=== PATIENT | male | born 1965 | race Caucasian/White ===

== ENCOUNTER 2016-12-06 14:16 | Inpatient (IN) ==
[2016-12-06] MEDS ORDERED: Acetaminophen 325 MG TABLET PO PRN (17:03)
[2016-12-06] MEDS ORDERED: Ondansetron 4 MG/2 ML VIAL IVP PRN (17:03)
[2016-12-06] MEDS ORDERED: Naloxone 0.4 MG/ML INJ IVP PRN (17:03)
[2016-12-06] MEDS: levETIRAcetam 250 MG TABLET PO SCH (17:53)
[2016-12-06] MEDS ORDERED: Ipratropium/Albuterol Neb 3 ML IH SCH (18:00)
--- NOTE | 2016-12-06 18:12 | Internal Med History&Physical ---
Date of Encounter: 12/06/16 Time of Encounter: 17:00 Assessment and Plan (1) Cough with hemoptysis Current visit: Yes Status: Acute 1 patient has been experiencing acute onset of cough/ hemoptysis. He does have a history of stage IV lung cancer. At present time there is no bleeding noted his hemoglobin is 8.6 previous hemoglobin on December 01 was 10. Continue to monitor H&H every 12 hours transfuse as needed [address] scan done at the [facility] which did reveal lymphadenopathy and narrowing of bronchus. Consulted /called pulmonology- bronchoscopy in a.m. patient will be nothing by mouth tonight 3 we will continue with oral steroids (2) Squamous cell carcinoma of lung, stage IV Current visit: Yes Status: Chronic 1 patient has history of squamous cell carcinoma lung. Patient's last chemotherapy treatment was in October We will consult oncology will continue with steroids 2 continue with present pain control-we will consult palliative 3 Zofran as needed for nausea Qualifiers: Laterality: left Qualified Code(s): C34.92 - Malignant neoplasm of unspecified part of left bronchus or lung (3) Seizure disorder Current visit: Yes Status: Acute 1 she has a history of seizures last seizure was proximal one year ago will continue with seizure precautions continue with antieleptics (4) COPD (chronic obstructive pulmonary disease) Current visit: Yes Status: Acute 1 patient has history of COPD is on oxygen at night will continue with oxygen to maintain SPO2 greater than 92% 2 we will continue with bronchodilators 3 patient continues to smoke encouraged patient to stop smoking Qualifiers: COPD type: emphysema Emphysema type: unspecified Qualified Code(s): J43.9 - Emphysema, unspecified (5) Hoarseness or changing voice Current visit: Yes Status: Acute 1 suspect this is related to current cancer. Patient was seen by ENT at the [facility]- do not have the reports from the [facility] will request 2. Place Patient on aspiration precautions (6) Hyponatremia Current visit: Yes Status: Acute 1 sodium presently 129. This is chronic most likely SIADH related to lung CA. No neuro changes at this time we will continue to monitor (7) DVT prophylaxis Current visit: Yes Status: Acute 1 patient is at high risk for DVT due to malignancy. Due to the [facility]optysis [facility] H&P: HPI Chief complaint: hemoptysis-hoarse voice Admitted From: Hospital to Hospital Transfer Plans for Post Hospital Care: Home History of present illness: Mr. Shabazz is a 50 year old male with past medical hx of seizure COPD (oxygen dependent) Lung CA, prostrate CA GERD tobacco abuse. The patient is being seen by oncology for stage IV squamous cell carcinoma of 1 as well as status post palliative radiation treatment and left femur. Last chemotherapy treatment was 11/05/16 he did see 10/02/17 and is anticipating continued treatment of chemotherapy as well as radiation therapy. According to the patient on Saturday he had experienced some midsternal chest pain which was worse with coughing and deep breathing and relieved with rest as well as hoarseness of his throat. He went to the [facility] to be evaluated. While at the [facility] the patient did develop hemoptysis CT of his chest was obtained which did reveal left hilar adenopathy significantly narrowed left main stem bronchus and nearly completely occludes the left upper lobe airway as well as fractures of the left eighth and ninth ribs. The patient states he was seen by ENT at the [facility] and was informed that his vocal cords were "not completely closing" and that is why his voice is hoarse. Because he does follow with oncology at [place] he was transferred to this facility for further workup and evaluation. Upon assessment the patient appears cachectic he speaks in a whisper. He denies any chest pain or shortness of breath at this time his only complaint is left leg pain. The present time there is no hemoptysis or other signs of active bleeding. He is presently hemodynamically stable. I reviewed this case with , who agrees with plan. Past Med Surg Social Fam HX - Past Medical History Medical history: cancer, COPD, migraine, seizures Psychiatric history: no psych history - Past Surgical History Surgical History: herniorrhaphy - Social History Smoking Status: Current every day smoker Smokeless Tobacco Status: No Alcohol use: rarely Drug use: none - Family History Mother Adopted: [place]: Roxie Shabazz Age: 84 Family Member Ethnicity: Non- Living Status: Still Living Hx Family Cardiac Disorders: No Hx Family Respiratory Disorders: Yes Hx Family Cancer: No Hx Family GI Disorders: Yes Hx Family Genitourinary Disorders: Yes Hx Family Endocrine Disorder: Yes Hx Family Musculoskeletal Disorders: Yes Hx Family Neuromuscular Disorders: No Hx Family Neurologic Disorders: No Hx Family HEENT Disorders: No Hx Family Autoimmune Disorders: No Hx Family Reproductive Disorders: No Hx Family Psychosocial Disorders: No Hx Family Medical Disorders: No Internal Medicine - H&P: Meds Albuterol Sulfate [Proair Hfa] 2 puff IH QID PRN 04/03/16 [History] CarBAMazepine [Tegretol] 200 mg PO TID 04/03/16 [History] Diclofenac Sodium [Voltaren] 50 mg PO BID 04/03/16 [History] Ipratropium [Atrovent Inhaler] 2 puff IH QID 04/03/16 [History] LevETIRAcetam [Keppra] 1,000 mg PO Q12H 04/03/16 [History] Methocarbamol [Robaxin-750] 750 mg PO BID 04/03/16 [History] Mometasone Furoate [Asmanex] 1 puff IH BID 04/03/16 [History] Omeprazole [PriLOSEC] 20 mg PO BID 04/03/16 [History] Propranolol [Inderal] 10 mg PO TID 04/03/16 [History] Magic Mouthwash [Magic Mouthwash BLM] 10 ml PO QID PRN #240 ml 05/11/16 [Rx] Ondansetron [Zofran] 4 mg PO Q8HR PRN #90 tablet 05/11/16 [Rx] Prochlorperazine Maleate [Compazine] 10 mg PO Q8HR PRN #90 tablet 05/11/16 [Rx] Guaifenesin [Mucinex] 600 mg PO BID #60 tab.er.12h 08/06/16 [Rx] Acetaminophen [Tylenol] 650 mg PO Q6HR PRN 12/06/16 [History] Acetylcysteine 10% 1 ml IH BID 12/06/16 [History] Chlorhexidine Gluconate [Peridex] 15 ml MM BID 12/06/16 [History] Ipratropium/Albuterol Neb [Duoneb] 3 ml IH Q6HR 12/06/16 [History] Mag Hydrox/Al Hydrox/Simeth [Antacid Suspension] 10 ml PO Q6H PRN 12/06/16 [ History] Magnesium Oxide [Mag-Ox] 400 mg PO BID 12/06/16 [History] Nicotine Patch [Nicoderm] 21 mg TD DAILY 12/06/16 [History] Olodaterol HCl [Striverdi Respimat] 2 puff IH DAILY 12/06/16 [History] Ondansetron [Zofran] 4 mg IVP Q4H PRN 12/06/16 [History] OxyCODONE Immed Rel [Roxicodone 5 MG] 5 mg PO Q4H PRN 12/06/16 [History] PredniSONE 20 mg PO DAILY 12/06/16 [History] Allergies iodine Allergy (Verified 03/22/16 11:57) Rash lamotrigine Allergy (Verified 05/21/16 16:37) Rash Iodinated Contrast Media - Oral and Adverse Reaction (Verified 12/06/16 15:43) See Comments [facility]. All Systems PM: A 10-system review of systems was performed and is negative for pertinent findings except as documented above in the HPI. - Constitutional Constitutional: anorexia, weight loss - EENT Nose, mouth and throat: change in voice, hoarseness - Cardiovascular Cardiovascular ROS IM: chest pain - Respiratory Respiratory: cough, hemoptysis, pain with cough - Gastrointestinal Gastrointestinal: diarrhea, nausea - Neurological Neurological ROS: convulsions Additional comments: Last seizure approximately one year ago - Constitutional Vitals: Temp Pulse Resp BP Pulse Ox 98.5 F 94 16 107/71 97 12/06/16 15:36 12/06/16 15:36 12/06/16 15:36 12/06/16 15:36 12/06/16 15:36 General appearance: Present: cachectic, answers questions appropriately - Head Head exam: Present: atraumatic, normocephalic - Eye Eye exam: Present: PERRL, conjuntiva pink, sclera anicteric Pupils: Present: PERRL - Respiratory Respiratory exam: Present: rhonchi. Absent: accessory muscle use, rales, wheezes - Cardiovascular Cardiovascular exam: Present: RRR, +S1, +S2. Absent: diastolic murmur, gallop, rubs, systolic murmur - GI/Abdominal GI/Abdominal exam: Present: normal bowel sounds, soft, no peritoneal signs. Absent: distended, tenderness - Extremities Exam Extremities exam: Present: warm, radial pulses palpable and symetrical. Absent : calf tenderness, cyanotic, pedal edema - Neurological Exam Neurological exam: Present: CN II-XII intact, oriented X3, no focal deficits. Absent: pronater drift, facial droop, speech deficit - Skin Skin exam: Present: dry, intact Internal Med - H&P Results - Labs Labs: Laboratory results from [facility] December 06 9:00 in the AM CBC WBC 7.8, hemoglobin 8.9, hematocrit 27.5, platelets 605 Chem-7 sodium 126, potassium 4.3, chloride 87, CO2 33, glucose 98, BUN 15, creatinine 0.51 - Diagnostic Studies CT scan - chest Additional comments: CTA per radiology read. No evidence of pulmonary embolism, significant interval enlargement of bulky conglomerate mediastinal and hilar lymphadenopathy. Left hilar means significantly narrows the left mainstem bronchus and completely or nearly completely occludes the left upper lobe airway. Irregular soft tissue masses within the proximal left upper lobe airway could represent retained secretions or potential tumor invasion. Bronchoscopy is recommended for further assessment. Subacute appearing fractures of the lateral left eighth and ninth ribs
[2016-12-06] MEDS: Magnesium Oxide 400 MG TABLET PO SCH (20:42)
[2016-12-06] MEDS: Methocarbamol 750 MG TABLET PO SCH (20:43)
[2016-12-06] MEDS: Chlorhexidine Rinse 15 ML MOUTHWASH MM SCH (20:43)
[2016-12-06] MEDS: carBAMazepine 200 MG TABLET PO SCH (20:43)
[2016-12-06] MEDS: Mag Hydrox/Al Hydrox/Simeth 30 ML UDC PO PRN (20:44)
[2016-12-06] MEDS ORDERED: Ipratropium 1 PUFF INHALER IH SCH (21:00)
[2016-12-06] MEDS: Beclomethasone 80mcg MDI IH SCH (21:07)
[2016-12-06] MEDS: Acetylcysteine 10% 2 ML INHSOL IH SCH (21:08)
[2016-12-06] MEDS: Ipratropium/Albuterol Neb 3 ML IH SCH (21:08)
[2016-12-06 21:14] LABS: Hematocrit 26.5 % (37.5-50.1); Hemoglobin 8.7 g/dL (12.9-16.9)
[2016-12-06] MEDS: Ipratropium 1 PUFF INHALER IH SCH (23:12)
[2016-12-07] MEDS: Ipratropium/Albuterol Neb 3 ML IH SCH ×4 (03:49→22:35)
[2016-12-07] MEDS: Ipratropium 1 PUFF INHALER IH SCH ×4 (03:50→22:36)
[2016-12-07] MEDS: Mag Hydrox/Al Hydrox/Simeth 30 ML UDC PO PRN (04:56)
[2016-12-07] MEDS: levETIRAcetam 250 MG TABLET PO SCH ×2 (04:57→16:33)
[2016-12-07 06:04] LABS: Basophils % 0.5 %; Eosinophils # 0.4 K/mcL (0.0-0.6); Eosinophils % 6.6 %; Hematocrit 26.4 % (37.5-50.1); Hemoglobin 8.4 g/dL (12.9-16.9); Immature Granulocytes % 0.9 % (0-4); Lymphocytes # 1.9 K/mcL (0.6-4.6); Lymphocytes % 29.3 %; Mean Corpuscular HGB Conc 31.8 g/dL (31.6-35.5); Mean Corpuscular Hemoglobin 30.8 pg (28.0-33.3); Mean Corpuscular Volume 96.7 fL (83.0-100.0); Mean Platelet Volume 8.8 fL (9.4-12.4); Monocytes # 1.5 K/mcL (0.0-1.3); Monocytes % 22.3 %; Neutrophils # 2.7 K/mcL (1.6-8.9); Platelet Count 515 K/mcL (140-400); Red Blood Count 2.73 M/mcL (4.19-5.50); Red Cell Distribution Width 15.9 % (11.5-14.5); Segmented Neutrophils % 40.4 %
[2016-12-07 06:21] LABS: BUN/Creatinine Ratio 25 (6-26); Blood Urea Nitrogen 14 mg/dL (8-26); Calcium 10.1 mg/dL (8.6-10.8); Carbon Dioxide 29 mEq/L (19-29); Chloride 88 mEq/L (98-109); Glucose 92 mg/dL (70-99); Osmolality,Calculated 262 (280-300); Potassium 4.7 mEq/L (3.5-4.5); Sodium 126 mEq/L (136-145); eGFR For African Americans > 60 (> 60); eGFR For Non-African Americans > 60 (> 60)
[2016-12-07 06:28] LABS: Platelet Estimate Increased (Normal)
[2016-12-07 06:29] LABS: Anisocytosis 1+ (Not Present)
[2016-12-07] MEDS: Nicotine 21 MG PATCH.TD24 TD SCH (08:01)
[2016-12-07] MEDS: Chlorhexidine Rinse 15 ML MOUTHWASH MM SCH ×2 (08:01→21:08)
[2016-12-07] MEDS: Methocarbamol 750 MG TABLET PO SCH ×2 (08:02→21:08)
[2016-12-07] MEDS: (Olodaterol Hcl [Striverdi Respimat] 2 PUFF) IH SCH (08:02)
[2016-12-07] MEDS: Magnesium Oxide 400 MG TABLET PO SCH ×2 (08:02→21:08)
[2016-12-07] MEDS: predniSONE 20 MG TABLET PO SCH (08:02)
[2016-12-07] MEDS: carBAMazepine 200 MG TABLET PO SCH ×3 (08:02→21:08)
[2016-12-07 09:07] LABS: Hematocrit 27.4 % (37.5-50.1)
[2016-12-07 09:11] LABS: INR 1.3; Prothrombin Time 13.6 Seconds (9.4-12.1)
--- NOTE | 2016-12-07 09:24 | Pulmonology Consult Note ---
Date of Encounter: 12/07/16 Time of Encounter: 09:21 Assessment and Plan (1) Cough with hemoptysis Current Visit: Yes Status: Acute Minor Hemoptysis It is unclear at this time as this represents tumor invasion versus bronchitis versus pneumonia or some combination of the 2 will do a airway examination today prior to that would recommend sending off evaluation for coagulopathy as a see this as not been done as of yet platelet count is normal and is not any sort of blood thinners at this time. Suspect patient may need palliative interventional procedure such as stenting based upon airway examination will be able to have a better idea of anatomical considerations for this. Further recommendations such as antimicrobials etc. based upon formal imaging review and cultures obtained Cont to keep patient NPO and and quantitate at bedside amount of hemoptysis. if greater dinh 250cc at one time or 500cc in 12 hours recommend transfer to ICU for further monitoring. Ideally would need at least 1 18guage AC IV. Trend H/H daily (currrently stable) cough suppresants such as codeine and tessalon can be helpful in a small group of patients. A bronchoscopy is recommended. The procedure , risks, benefits, complications, and expected outcomes have been reviewed. Benefits of diagnosis, as well as risks to include bleeding, infection, pneumothorax which may require surgical intervention, and in a small population. The patient is aware that sometimes test is nondiagnostic. Discussed with patient and agrees to proceed. (2) COPD (chronic obstructive pulmonary disease) Current Visit: Yes Status: Acute Minor wheezing on examination today mostly in the right lower lobe would be helpful to get a chest x-ray is basic evaluation at this time agree with continued enteral steroids and bronchodilators at present would not, in an antimicrobials at this time as more information is needed and I do not see any urgent need to start antimicrobials Qualifiers: COPD type: emphysema Emphysema type: unspecified Qualified Code(s): J43.9 - Emphysema, unspecified (3) DVT prophylaxis Current Visit: Yes Status: Acute recommend mechanical DVT prophylaxis with active bleeding (4) Squamous cell carcinoma of lung, stage IV Current Visit: Yes Status: Chronic Qualifiers: Laterality: left Qualified Code(s): C34.92 - Malignant neoplasm of unspecified part of left bronchus or lung History of Present Illness Consult date: 12/07/16 Requesting physician: Allan Key Reason for consult: abnormal CXR/CT Chief complaint: Coughing up blood History of present illness: This is a 50-year-old woman with a history of metastatic non-small cell lung cancer being followed here in the cancer center has undergone chemotherapy with [place]-based therapy along with XRT for metastatic left bone lesion. Last chemotherapy was approximately 1 month ago. [facility] he was having shortness of breath and difficulty breathing was treated for COPD exacerbation and possible pneumonia records are not present for me to review and patient is an entirely sure the exact therapy. He received there when developed hemoptysis per report and speak with the patient a few days ago CTA was performed at that time which was remarkable for left mainstem narrowing from what was scattered from the history of present illness although I do not have the formal report in front of me in the disc has not been obtained as of yet. Speaking with the patient he has been coughing up small teaspoons of dark blood for the last few days intermittent has had some intermittent chest pain as well mostly located in the right upper portion of his thorax. Denies any fevers or chills has had cough but apically productive longtime smoking history started smoking approximately age 19 at least a pack a day until when [facility]. Diagnosed with COPD and is on maintenance inhalers looking at his medication list right now appears disease also receiving steroids for possible COPD exacerbation currently he is in no acute distress and is complaining of hunger. 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 subsequently went on a work in a [employer] HX - Past Medical History Medical history: cancer, COPD, migraine, seizures Psychiatric history: no psych history - Past Surgical History Surgical History: herniorrhaphy - Social History Smoking Status: Current every day smoker Smokeless Tobacco Status: No Alcohol use: rarely Drug use: none - Family History Mother Adopted: [place]: Roxie Shabazz Age: 84 Family Member Ethnicity: Non- Living Status: Still Living Hx Family Cardiac Disorders: No Hx Family Respiratory Disorders: Yes Hx Family Cancer: No Hx Family GI Disorders: Yes Hx Family Genitourinary Disorders: Yes Hx Family Endocrine Disorder: Yes Hx Family Musculoskeletal Disorders: Yes Hx Family Neuromuscular Disorders: No Hx Family Neurologic Disorders: No Hx Family HEENT Disorders: No Hx Family Autoimmune Disorders: No Hx Family Reproductive Disorders: No Hx Family Psychosocial Disorders: No Hx Family Medical Disorders: No Medications and Allergies Albuterol Sulfate [Proair Hfa] 2 puff IH QID PRN 04/03/16 [History] CarBAMazepine [Tegretol] 200 mg PO TID 04/03/16 [History] Diclofenac Sodium [Voltaren] 50 mg PO BID 04/03/16 [History] Ipratropium [Atrovent Inhaler] 2 puff IH QID 04/03/16 [History] LevETIRAcetam [Keppra] 1,000 mg PO Q12H 04/03/16 [History] Methocarbamol [Robaxin-750] 750 mg PO BID 04/03/16 [History] Mometasone Furoate [Asmanex] 1 puff IH BID 04/03/16 [History] Omeprazole [PriLOSEC] 20 mg PO BID 04/03/16 [History] Propranolol [Inderal] 10 mg PO TID 04/03/16 [History] Magic Mouthwash [Magic Mouthwash BLM] 10 ml PO QID PRN #240 ml 05/11/16 [Rx] Ondansetron [Zofran] 4 mg PO Q8HR PRN #90 tablet 05/11/16 [Rx] Prochlorperazine Maleate [Compazine] 10 mg PO Q8HR PRN #90 tablet 05/11/16 [Rx] Guaifenesin [Mucinex] 600 mg PO BID #60 tab.er.12h 08/06/16 [Rx] Acetaminophen [Tylenol] 650 mg PO Q6HR PRN 12/06/16 [History] Acetylcysteine 10% 1 ml IH BID 12/06/16 [History] Chlorhexidine Gluconate [Peridex] 15 ml MM BID 12/06/16 [History] Ipratropium/Albuterol Neb [Duoneb] 3 ml IH Q6HR 12/06/16 [History] Mag Hydrox/Al Hydrox/Simeth [Antacid Suspension] 10 ml PO Q6H PRN 12/06/16 [ History] Magnesium Oxide [Mag-Ox] 400 mg PO BID 12/06/16 [History] Nicotine Patch [Nicoderm] 21 mg TD DAILY 12/06/16 [History] Olodaterol HCl [Striverdi Respimat] 2 puff IH DAILY 12/06/16 [History] Ondansetron [Zofran] 4 mg IVP Q4H PRN 12/06/16 [History] OxyCODONE Immed Rel [Roxicodone 5 MG] 5 mg PO Q4H PRN 12/06/16 [History] PredniSONE 20 mg PO DAILY 12/06/16 [History] Allergies iodine Allergy (Verified 03/22/16 11:57) Rash lamotrigine Allergy (Verified 05/21/16 16:37) Rash Iodinated Contrast Media - Oral and Adverse Reaction (Verified 12/06/16 15:43) See Comments [facility] list. All Systems: A 10-system review of systems was performed and is negative for pertinent findings except as documented above in the HPI. Physical Examination Vital Signs: Vital Signs, Last 4 Hours Temp Pulse Resp BP Pulse Ox 12/07/16 06:44 98.2 F 106 16 118/70 97 12/07/16 05:29 98.5 F 101 16 112/69 97 General appearance: no acute distress, other (emaciated and cachexic ) Eyes: nonicteric ENT: oropharynx moist Neck: supple Auscultation: right: wheezes (RLL ), bilateral: diminished breath sounds ( throughout ), rhonchi (scatered ) Cardiovascular: regular rate and rhythm Gastrointestinal: normoactive bowel sounds Integumentary: normal Extremities: no cyanosis Musculoskeletal: no deformities normal mental status, non-focal exam mood appropriate Results - Laboratory Findings CBC and BMP: 12/07/16 08:59 12/07/16 05:27 PT/INR, D-dimer PT 13.6 Seconds (9.4-12.1) H 12/07/16 08:59 Abnormal lab findings: Abnormal lab results RBC 2.73 M/mcL (4.19-5.50) L 12/07/16 05:27 Hgb 9.0 g/dL (12.9-16.9) L 12/07/16 08:59 Hct 27.4 % (37.5-50.1) L 12/07/16 08:59 RDW 15.9 % (11.5-14.5) H 12/07/16 05:27 Plt Count 515 K/mcL (140-400) H 12/07/16 05:27 MPV 8.8 fL (9.4-12.4) L 12/07/16 05:27 Monocytes # 1.5 K/mcL (0.0-1.3) H 12/07/16 05:27 Platelet Estimate Increased (Normal) H 12/07/16 05:27 Anisocytosis 1+ (Not Present) A 12/07/16 05:27 PT 13.6 Seconds (9.4-12.1) H 12/07/16 08:59 Sodium 126 mEq/L (136-145) L 12/07/16 05:27 Potassium 4.7 mEq/L (3.5-4.5) H 12/07/16 05:27 Chloride 88 mEq/L (98-109) L 12/07/16 05:27 Creatinine 0.57 mg/dL (0.72-1.25) L 12/07/16 05:27 POC Glucose 117 (58-89) H 12/06/16 23:29 Calculated Osmolality 262 (280-300) L 12/07/16 05:27 - Clinical Findings Intake & Output: Intake & Output 12/06/16 12/07/16 12/07/16 23:59 07:59 15:59 Intake Total 0 / 0 Output Total 0 / 0 Balance 0 / 0 Consult Discharge Plan - Plan [facility]errals: [facility]Primary Care Provider[facility] -
--- NOTE | 2016-12-07 10:05 | Oncology Inp Consult Note ---
Date of Encounter: 12/07/16 Time of Encounter: 09:00 Assessment and Plan (1) Squamous cell carcinoma of lung, stage IV Status: Chronic Assessment and plan: 50 yo male with metastatic squamous cell carcinoma, abdominal adenopathy and left femur uptake consistent with metastatic disease, stage IV. s/p RT palliative left femur treatments completed 06/12. s/p chemo carbo/abraxane-last dose 11/13 Hospitalized with hemoptysis--mucosu with dark blood-awaiting bronchoscopy procedure today. Pulm input and consultation appreciated. Discussed imaging (from [facility]) with radiation--possible palliative RT to paratracheal mediastial adenopathy after bronch evaluation and findings today. Monitor Hgb/Hct transfuse as needed Nivolumab q 2wkly to be planned SOB/COPD likely COPD, anemia. SOB Stable Pain in the left leg. Has oxycodone--prn> Add zometa/denosumab. Ortho evaluate for any procedure to stabilize. He is s/p RT left femur Will obtain recent imaging from [facility] as scheduled Qualifiers: Laterality: left Qualified Code(s): C34.92 - Malignant neoplasm of unspecified part of left bronchus or lung - Data of Consult Requesting Physician: Julian Campos MD Primary Care Provider: [facility] - Consult Narrative Reason for consult: lung cancer History of present illness: Stage IV squamous cell ca lung, s/p palliative RT left femur 06/12. on carbo/ taxol since 06/25/16, carbo/abraxane from [facility], last Rx 11/05/16 HPI 50-year-old with squamous cell carcinoma of the lung, medical history significant for chronic tobacco abuse, COPD, history of cancer prostate, history of seizures last episode 6 months ago, history of migraine headaches with symptoms of COPD and pneumonia, who underwent further workup for lung nodules and lymphadenopathy with PET imaging as well as a bronchoscopy biopsy. Bronchoscopy findings showed narrowing in the left upper and lower Left main bronchus. Biopsy of the anterior carinal lymph node and subcarinal lymph node were positive for malignant cells consistent with squamous cell carcinoma. Right upper, lobe left upper lobe bronchoalveolar lavage consistent with squamous cell carcinoma. Right hilum atypical cells suggestive of squamous cell carcinoma as well. P63, CK 5 and 6 were positive. PET showed Metabolically active left hilar mass 23.4 increased FDG activity with SUV max of 23.6 and the subcarinal lymph node uptake in several mediastinal lymph nodes with SUV max of 18 axillary adenopathy without SUV uptake. airspace opacity in the left upper lobe secondary to partial obstruction. Focal intense metabolic activity in the proximal left femur concerning for metastatic disease, metabolically active soft tissue nodule in the anterior right lower quadrant concerning for metastatic disease. Seizure hx last one 6mo ago prior to initial visit Hx prostate ca s/p brachytherapy in 2011 at [place] by Dr Gonzales Left hip discomfort s/p RT 06/12 left femur Started Carbotaxol, 06/12. Developed reaction to taxol with C2--with SOB, dizziness. BP 155/60, CT 105-112, Pulse ox on oxygen was 98%--07/13, strated C3 with abraxane instead of taxol 08/06/16 (carbo given with wk2 abraxane due to cycling) Imaging after [facility] showed mixed response with YARIEL nodule decreasing and slight increase in paratracheal node. He is on carbo/abraxane [facility] Anemia Hgb dropped 7.5--08/20/16. Rx held that day CXR--08/25/16--no ac abnormalities. Hyperinflation. No COPD s/p PRBC for anemia-cytopenia from Rx CT CAP--increase mediastianl adenopathy, paratracheal adenopathy ROS: 12/03/2016 Patient was seen last visit a week [facility] due to weakness and difficulty swallowing, poor intake. Had a cough, with daily headaches. Hoarseness/lost voice since Saturday. He has appt with ENT to follow up with this. Patient was transferred on 12/06 2016 with coughing episodes and hemoptysis for further Rx. Past Med Surg Social Fam HX - Past Medical History Medical history: cancer, COPD, migraine, seizures Psychiatric history: no psych history - Past Surgical History Surgical History: herniorrhaphy - Social History Smoking Status: Current every day smoker Smokeless Tobacco Status: No Alcohol use: rarely Drug use: none - Family History Mother Adopted: [place]: Roxie Shabazz Age: 84 Family Member Ethnicity: Non- Living Status: Still Living Hx Family Cardiac Disorders: No Hx Family Respiratory Disorders: Yes Hx Family Cancer: No Hx Family GI Disorders: Yes Hx Family Genitourinary Disorders: Yes Hx Family Endocrine Disorder: Yes Hx Family Musculoskeletal Disorders: Yes Hx Family Neuromuscular Disorders: No Hx Family Neurologic Disorders: No Hx Family HEENT Disorders: No Hx Family Autoimmune Disorders: No Hx Family Reproductive Disorders: No Hx Family Psychosocial Disorders: No Hx Family Medical Disorders: No Medications and Allergies Albuterol Sulfate [Proair Hfa] 2 puff IH QID PRN 04/03/16 [History] CarBAMazepine [Tegretol] 200 mg PO TID 04/03/16 [History] Diclofenac Sodium [Voltaren] 50 mg PO BID 04/03/16 [History] Ipratropium [Atrovent Inhaler] 2 puff IH QID 04/03/16 [History] LevETIRAcetam [Keppra] 1,000 mg PO Q12H 04/03/16 [History] Methocarbamol [Robaxin-750] 750 mg PO BID 04/03/16 [History] Mometasone Furoate [Asmanex] 1 puff IH BID 04/03/16 [History] Omeprazole [PriLOSEC] 20 mg PO BID 04/03/16 [History] Propranolol [Inderal] 10 mg PO TID 04/03/16 [History] Magic Mouthwash [Magic Mouthwash BLM] 10 ml PO QID PRN #240 ml 05/11/16 [Rx] Ondansetron [Zofran] 4 mg PO Q8HR PRN #90 tablet 05/11/16 [Rx] Prochlorperazine Maleate [Compazine] 10 mg PO Q8HR PRN #90 tablet 05/11/16 [Rx] Guaifenesin [Mucinex] 600 mg PO BID #60 tab.er.12h 08/06/16 [Rx] Acetaminophen [Tylenol] 650 mg PO Q6HR PRN 12/06/16 [History] Acetylcysteine 10% 1 ml IH BID 12/06/16 [History] Chlorhexidine Gluconate [Peridex] 15 ml MM BID 12/06/16 [History] Ipratropium/Albuterol Neb [Duoneb] 3 ml IH Q6HR 12/06/16 [History] Mag Hydrox/Al Hydrox/Simeth [Antacid Suspension] 10 ml PO Q6H PRN 12/06/16 [ History] Magnesium Oxide [Mag-Ox] 400 mg PO BID 12/06/16 [History] Nicotine Patch [Nicoderm] 21 mg TD DAILY 12/06/16 [History] Olodaterol HCl [Striverdi Respimat] 2 puff IH DAILY 12/06/16 [History] Ondansetron [Zofran] 4 mg IVP Q4H PRN 12/06/16 [History] OxyCODONE Immed Rel [Roxicodone 5 MG] 5 mg PO Q4H PRN 12/06/16 [History] PredniSONE 20 mg PO DAILY 12/06/16 [History] Allergies iodine Allergy (Verified 03/22/16 11:57) Rash lamotrigine Allergy (Verified 05/21/16 16:37) Rash Iodinated Contrast Media - Oral and Adverse Reaction (Verified 12/06/16 15:43) See Comments Per [facility] list. Review of systems: as in HPI Oncology - Exam - Constitutional Vitals: Temp Pulse Resp BP Pulse Ox 98.2 F 106 16 118/70 97 12/07/16 06:44 12/07/16 06:44 12/07/16 06:44 12/07/16 06:44 12/07/16 06:44 Exam: thin not in distress, on oxygen - Head Head exam: Present: atraumatic, normal inspection - Eye Eye exam: Present: sclera anicteric - ENT ENT exam: Present: mucous membranes moist - Neck Neck exam: Present: full ROM, normal inspection - Respiratory Respiratory exam: Present: CTAB, wheezes - Cardiovascular Cardiovascular exam: Present: +S1, +S2 - GI/Abdominal GI/Abdominal exam: Present: normal bowel sounds, soft - Extremities Exam Additional comments: no pedal edema - Neurological Exam Neurological exam: Present: alert, oriented X3 Oncology - Results - Labs Labs: Short CBC 12/06/16 12/07/16 12/07/16 Range/Units 21:07 05:27 08:59 WBC 6.6 (4.3-11.1) K/mcL Hgb 8.7 L 8.4 L 9.0 L (12.9-16.9) g/dL Hct 26.5 L 26.4 L 27.4 L (37.5-50.1) % Plt Count 515 H (140-400) K/mcL Neutrophils # 2.7 (1.6-8.9) K/mcL BMP 12/07/16 05:27 Sodium 126 L Potassium 4.7 H Chloride 88 L Carbon Dioxide 29 BUN 14 Creatinine 0.57 L Glucose 92 Calcium 10.1 Consult Discharge Plan - Plan [facility]errals: [facility] [Primary Care Provider] -
[2016-12-07] MEDS: Acetylcysteine 10% 2 ML INHSOL IH SCH ×2 (10:24→22:35)
[2016-12-07] MEDS: Beclomethasone 80mcg MDI IH SCH ×2 (10:24→22:35)
[2016-12-07] MEDS ORDERED: Lidocaine Viscous Oral Soln 15 ML SOLUTION ONE (10:40)
[2016-12-07] MEDS ORDERED: *HR* FentaNYL (PF) 100 MCG/2 ML VIAL IVP ONE (11:03)
--- NOTE | 2016-12-07 11:03 | Palliative - Consult Note ---
Date of Encounter: 12/07/16 Time of Encounter: 10:50 - Assessment and Plan (1) Nausea Current Visit: Yes Status: Acute Assessment and plan: Continue Ondansetron PRN and monitor (2) Cancer associated pain Current Visit: Yes Status: Acute Assessment and plan: Continue Oxycodone 5mg PRN - has not utilized since admission. Patients states only has to use this occasionally at home. Continue and monitor (3) Counseling regarding advanced care planning and goals of care Current Visit: Yes Status: Acute Assessment and plan: Patient states leaving for bronchoscopy soon. Initiated advanced care planning discussion - States he has completed his advanced directives through the [facility] and signed release for me to obtain that information. Asked me to review this document. Patient was very quiet and withdrawn throughout conversation, stated he was tired and just desired to rest. DId not want to discuss code status at this time. Release faxed to [facility] and awaiting advanced directives to review. He lives alone, but brother lives in [place] and assists him with appts, meals , and transportation. MotherRoxie resides in [place], and is able to assist if his brother is not available. On marie team at [facility]. He ambulates with cane and has Oxygen at home if needed. States they were in process of setting up home care. He is anxiously awaiting bronch and desires to see results prior to further conversation. Will continue compassionate conversations while he is here in hospital. (4) COPD (chronic obstructive pulmonary disease) Current Visit: Yes Status: Acute Qualifiers: COPD type: emphysema Emphysema type: unspecified Qualified Code(s): J43.9 - Emphysema, unspecified (5) Cough with hemoptysis Current Visit: Yes Status: Acute (6) Squamous cell carcinoma of lung, stage IV Current Visit: Yes Status: Chronic Qualifiers: Laterality: left Qualified Code(s): C34.92 - Malignant neoplasm of unspecified part of left bronchus or lung Palliative-CN HPI - Data of Consult Consult date: 12/07/16 Requesting Physician: Julian Campos MD Primary Care Provider: [facility]CP [facility] - Consult Narrative History of present illness: Mr. Shabazz is a 50 year old male with a history of prostate cancer as well as metastatic squamous cell lung cancer as is cared for by marie team at the [facility], along with the [facility]. He was admitted with acute onset of hemoptysis. He currently resides alone with brother assisting. He currently is resting quietly. Speaks in a whisper. has ENT consult soon to evaluate this. States he is having no pain and only occasionally requires his Oxycodone at home. was struggling with nausea a few days ago, but currently improved. Denies any shortness of breath, does not have oxygen on presently.. Previously has history of COPD, and recently still smoking. Flat affect and not engaging in much conversation during my visit. States he is having bronch today at 100. CC: Julian Campos MD Past Med Surg Social Fam HX - Past Medical History Medical history: cancer, COPD, migraine, seizures Psychiatric history: no psych history - Past Surgical History Surgical History: herniorrhaphy - Social History Smoking Status: Current every day smoker Smokeless Tobacco Status: No Alcohol use: rarely Drug use: none - Family History Mother Adopted: [place]: Roxie Shabazz Age: 84 Family Member Ethnicity: Non- Living Status: Still Living Hx Family Cardiac Disorders: No Hx Family Respiratory Disorders: Yes Hx Family Cancer: No Hx Family GI Disorders: Yes Hx Family Genitourinary Disorders: Yes Hx Family Endocrine Disorder: Yes Hx Family Musculoskeletal Disorders: Yes Hx Family Neuromuscular Disorders: No Hx Family Neurologic Disorders: No Hx Family HEENT Disorders: No Hx Family Autoimmune Disorders: No Hx Family Reproductive Disorders: No Hx Family Psychosocial Disorders: No Hx Family Medical Disorders: No Medications and Allergies Albuterol Sulfate [Proair Hfa] 2 puff IH QID PRN 04/03/16 [History] CarBAMazepine [Tegretol] 200 mg PO TID 04/03/16 [History] Diclofenac Sodium [Voltaren] 50 mg PO BID 04/03/16 [History] Ipratropium [Atrovent Inhaler] 2 puff IH QID 04/03/16 [History] LevETIRAcetam [Keppra] 1,000 mg PO Q12H 04/03/16 [History] Methocarbamol [Robaxin-750] 750 mg PO BID 04/03/16 [History] Mometasone Furoate [Asmanex] 1 puff IH BID 04/03/16 [History] Omeprazole [PriLOSEC] 20 mg PO BID 04/03/16 [History] Propranolol [Inderal] 10 mg PO TID 04/03/16 [History] Magic Mouthwash [Magic Mouthwash BLM] 10 ml PO QID PRN #240 ml 05/11/16 [Rx] Ondansetron [Zofran] 4 mg PO Q8HR PRN #90 tablet 05/11/16 [Rx] Prochlorperazine Maleate [Compazine] 10 mg PO Q8HR PRN #90 tablet 05/11/16 [Rx] Guaifenesin [Mucinex] 600 mg PO BID #60 tab.er.12h 08/06/16 [Rx] Acetaminophen [Tylenol] 650 mg PO Q6HR PRN 12/06/16 [History] Acetylcysteine 10% 1 ml IH BID 12/06/16 [History] Chlorhexidine Gluconate [Peridex] 15 ml MM BID 12/06/16 [History] Ipratropium/Albuterol Neb [Duoneb] 3 ml IH Q6HR 12/06/16 [History] Mag Hydrox/Al Hydrox/Simeth [Antacid Suspension] 10 ml PO Q6H PRN 12/06/16 [ History] Magnesium Oxide [Mag-Ox] 400 mg PO BID 12/06/16 [History] Nicotine Patch [Nicoderm] 21 mg TD DAILY 12/06/16 [History] Olodaterol HCl [Striverdi Respimat] 2 puff IH DAILY 12/06/16 [History] Ondansetron [Zofran] 4 mg IVP Q4H PRN 12/06/16 [History] OxyCODONE Immed Rel [Roxicodone 5 MG] 5 mg PO Q4H PRN 12/06/16 [History] PredniSONE 20 mg PO DAILY 12/06/16 [History] Allergies iodine Allergy (Verified 03/22/16 11:57) Rash lamotrigine Allergy (Verified 05/21/16 16:37) Rash Iodinated Contrast Media - Oral and Adverse Reaction (Verified 12/06/16 15:43) See Comments Per [facility] list. All systems: reviewed and no additional remarkable complaints except as stated ( hemoptysis, weakness, occasional nausea, shortness of breath on exertion) Palliative Care-Exam - Constitutional Vitals: Temp Pulse Resp BP Pulse Ox 98.2 F 106 16 118/70 97 12/07/16 06:44 12/07/16 06:44 12/07/16 06:44 12/07/16 06:44 12/07/16 08:00 General appearance: Present: no acute distress - Head Head Exam: Present: normal inspection, normocephalic - Respiratory Respiratory exam: Present: decreased breath sounds - Expanded Respiratory Exam Location: decreased breath sounds: Right, Lower - Cardiovascular Cardiovascular exam: Present: +S1, +S2 - GI/Abdominal Exam GI/Abdominal exam: Present: normal bowel sounds, soft - Neurological Exam Neurological exam: Present: alert, oriented X3, strengths equal and symetr throughout - Psychiatric Psychiatric exam: Present: flat affect - Skin Skin exam: Present: dry, pallor, warm Internal Medicine - CN: Reslt - Labs CBC & Chem 7: 12/07/16 08:59 12/07/16 05:27 Labs: Short CBC 12/06/16 12/07/16 12/07/16 Range/Units 21:07 05:27 08:59 WBC 6.6 (4.3-11.1) K/mcL Hgb 8.7 L 8.4 L 9.0 L (12.9-16.9) g/dL Hct 26.5 L 26.4 L 27.4 L (37.5-50.1) % Plt Count 515 H (140-400) K/mcL Neutrophils # 2.7 (1.6-8.9) K/mcL BMP 12/07/16 05:27 Sodium 126 L Potassium 4.7 H Chloride 88 L Carbon Dioxide 29 BUN 14 Creatinine 0.57 L Glucose 92 Calcium 10.1 - ABG Interpretation ABG results: PT/INR, D-dimer PT 13.6 Seconds (9.4-12.1) H 12/07/16 08:59 Consult Discharge Plan - Plan [facility]errals: [facility] [Primary Care Provider] - 12/20/16 12:30 pm Palliative Quality Palliative Quality: Screen for Code Status: Yes, Screen for Goals of Care: Yes, Screen for Pain: Yes, If Pain Regimen Started, Initiate Bowel Regimen: NA, Screen for Nausea/Vomitting: Yes Code Status: 12/06/16 17:03 Resuscitation Status: Active [RES] Routine Comment: Resuscitation Status: Full Code
[2016-12-07] MEDS ORDERED: *HR* Midazolam HCl 5 MG/5 ML VIAL IVP ONE (11:04)
--- NOTE | 2016-12-07 11:11 | Internal Med Progress Note ---
<Hernandez Gomez - Last Filed: 12/07/16 11:48> Date of Encounter: 12/07/16 Time of Encounter: 11:07 - Assessment and plan (1) Hemoptysis Current Visit: Yes Status: Acute Assessment and plan: likely from lung cancer. Hg stable Pulmonology consulted with bronchoscopy planned for today. follow H/H. (2) Non-small cell lung cancer Current Visit: Yes Status: Acute Assessment and plan: Stage 4 NSC lung cancer. has recieved RT to left femur and chemotherapy with last dose on 11/13/16 Case discussed with oncology. will need to continue to follow up as an outpatient. Qualifiers: Qualified Code(s): C34.90 - Malignant neoplasm of unspecified part of unspecified bronchus or lung (3) Anemia Current Visit: Yes Status: Acute Assessment and plan: likely from a combination of cancer, hemoptysis, malnutrition, and chemotherapy. currently stable. trend H/H as he has hemoptysis. Qualifiers: Qualified Code(s): D64.9 - Anemia, unspecified (4) Hyponatremia Current Visit: Yes Status: Acute Assessment and plan: acute on chronic medications reviewed. antiepileptics may be contributing. He is asymptomatic. He is malnourished. Likely secondary to poor diet and volume depletion. Will order lab studies. My impression is that this is more of a volume depletion and poor nutrition picture. I will start him on some IV fluids and trend BMP. (5) COPD (chronic obstructive pulmonary disease) Current Visit: Yes Status: Acute Assessment and plan: currently stable. On room air. continue Qvar and PRN duonebs. advise smoking cessation Qualifiers: Qualified Code(s): J44.9 - Chronic obstructive pulmonary disease, unspecified (6) Tobacco abuse Current Visit: Yes Status: Acute Assessment and plan: advise cessation nicotine patch offered. (7) Malnutrition Current Visit: Yes Status: Acute Assessment and plan: nutrition consulted nithya benz. (8) Patient underweight Current Visit: Yes Status: Acute Assessment and plan: as stated above (9) DVT prophylaxis Current Visit: Yes Status: Acute Assessment and plan: EPCDS - Subjective Interval history: Mr. Shabazz is a 50 y.o. male with stage IV non small cell carcinoma of the lung with known metastsis to the left fmur. He has undergone palliative RT of the left Femur. He has also undergone chemotherapy with Carbo/abraxane. Last dose was 11/13/16. He is admitted for hemoptysis. Pulmonology has been consulted and he is scheduled for a bronchoscopy later today. Today Mr. Shabazz states that he continues to cough up bright bleed blood. He has a container at bedside that has approximately 20 cc's of blood in it. He state that this is all he has coughed up since admission. He denies any increased dypnea, wheeze, or fever. He denies any pain or discomfort at this time. He has no further complaints or concerns at this time. - Constitutional Vitals: Temp Pulse Resp BP Pulse Ox 98.2 F 106 16 118/70 100 12/07/16 06:44 12/07/16 06:44 12/07/16 10:24 12/07/16 06:44 12/07/16 10:24 General appearance: Present: cachectic, A&O X 3, pleasant, no acute distress, answers questions appropriately Exam: cachetic - Head Head exam: Present: atraumatic, normal inspection, normocephalic - Eye Eye exam: Present: PERRL, conjuntiva pink, sclera anicteric Pupils: Present: PERRL - ENT ENT exam: Present: mucous membranes moist Additional comments: no cervicel LAD - Neck Neck exam general surgery: Present: normal inspection, supple, trachea midline. Absent: lymphadenopathy - Respiratory Respiratory exam: Present: CTAB, wheezes. Absent: accessory muscle use, rales, rhonchi - Cardiovascular Cardiovascular exam: Present: RRR, +S1, +S2. Absent: diastolic murmur, gallop, rubs, systolic murmur - GI/Abdominal GI/Abdominal exam: Present: normal bowel sounds, soft, no peritoneal signs. Absent: distended, tenderness - Extremities Exam Extremities exam: Present: warm, radial pulses palpable and symetrical. Absent : calf tenderness, cyanotic, pedal edema - Skin Skin exam: Present: dry, intact Internal Medicine: Result - Labs CBC & Chem 7: 12/07/16 08:59 12/07/16 05:27 Labs: Short CBC 12/06/16 12/07/16 12/07/16 Range/Units 21:07 05:27 08:59 WBC 6.6 (4.3-11.1) K/mcL Hgb 8.7 L 8.4 L 9.0 L (12.9-16.9) g/dL Hct 26.5 L 26.4 L 27.4 L (37.5-50.1) % Plt Count 515 H (140-400) K/mcL Neutrophils # 2.7 (1.6-8.9) K/mcL BMP 12/07/16 05:27 Sodium 126 L Potassium 4.7 H Chloride 88 L Carbon Dioxide 29 BUN 14 Creatinine 0.57 L Glucose 92 Calcium 10.1 - ABG Interpretation ABG results: PT/INR, D-dimer PT 13.6 Seconds (9.4-12.1) H 12/07/16 08:59 Consult Discharge Plan - Plan [facility]errals: [facility] [Primary Care Provider] - 12/20/16 12:30 pm <Julian Campos P - Last Filed: 12/07/16 15:47> - Constitutional Vitals: Temp Pulse Resp BP Pulse Ox 98.2 F 94 14 105/73 100 12/07/16 06:44 12/07/16 12:00 12/07/16 12:00 12/07/16 12:00 12/07/16 10:24 Internal Medicine: Result - Labs CBC & Chem 7: 12/07/16 08:59 12/07/16 05:27 Labs: Short CBC 12/06/16 12/07/16 12/07/16 Range/Units 21:07 05:27 08:59 WBC 6.6 (4.3-11.1) K/mcL Hgb 8.7 L 8.4 L 9.0 L (12.9-16.9) g/dL Hct 26.5 L 26.4 L 27.4 L (37.5-50.1) % Plt Count 515 H (140-400) K/mcL Neutrophils # 2.7 (1.6-8.9) K/mcL BMP 12/07/16 05:27 Sodium 126 L Potassium 4.7 H Chloride 88 L Carbon Dioxide 29 BUN 14 Creatinine 0.57 L Glucose 92 Calcium 10.1 - ABG Interpretation ABG results: PT/INR, D-dimer PT 13.6 Seconds (9.4-12.1) H 12/07/16 08:59 - Attending Attestation I examined this patient and my medical decision-making was reviewed with the ATTENDANT SALES/PA/Advanced Practice Nurse/Resident Physician. I agree with the documented findings, disposition and treatment plan as described except to the extent set forth below. if patient clinically worsened then transfer to [facility] overnight as per pulmonology
[2016-12-07] MEDS ORDERED: *HR* EPINEPHrine 1 MG/10 ML SYRINGE INTRATRACH PRN (11:56)
--- NOTE | 2016-12-07 12:43 | Pre-Sedation Evaluation ---
Pre-sedation evaluation - Pre-sedation checklist Date of procedure: 12/07/16 Procedure: bronchoscopy Recent Vitals: Last Vital Signs Temp 98.2 F 12/07/16 06:44 Pulse 94 12/07/16 12:00 Resp 14 12/07/16 12:00 BP 105/73 12/07/16 12:00 Pulse Ox 100 12/07/16 10:24 H&P (including ROS) documented in medical record: Yes Previous reaction to sedatives/anesthetics: No Dietary Status: NPO after Midnight Airway Assessment: Patient can open mouth completely, TMJ function normal Dentition: poor dentition Possible difficult airway: No ASA Classification *see protocol: CLASS III-Severe systemic disease Plan of Care: Pt appropriate candidate for procedure/moderate/conscious sedation , Risks/benefits of procedure/sedation discussed w/ patient/family
[2016-12-07 13:50] LABS: Thyroid Stimulating Hormone 0.947 mcIU/mL (0.350-4.840)
[2016-12-07 16:22] LABS: Hematocrit 26.4 % (37.5-50.1); Hemoglobin 8.8 g/dL (12.9-16.9)
[2016-12-07] MEDS: 0.9 % Sodium Chloride 1,000 ML IVC SCH (19:46)
[2016-12-07 21:00] LABS: Hemoglobin 8.3 g/dL (12.9-16.9)
[2016-12-08] MEDS: Ipratropium/Albuterol Neb 3 ML IH SCH ×4 (04:26→20:37)
[2016-12-08] MEDS: Ipratropium 1 PUFF INHALER IH SCH ×4 (04:29→20:47)
[2016-12-08] MEDS: levETIRAcetam 250 MG TABLET PO SCH ×2 (06:03→17:16)
--- NOTE | 2016-12-08 09:08 | Internal Med Progress Note ---
Date of Encounter: 12/08/16 Time of Encounter: 09:04 - Assessment and plan (1) Hemoptysis Current Visit: Yes Status: Acute Assessment and plan: likely from lung cancer. Hg stable Pulmonology consulted with bronchoscopy planned for today. follow H/H. 12/08/2016 stable H and H no more hemoptysis S/P Brochoscopy with thrombin application on left sided fungating tumor. Pulmonary on board. if further hemoptysis then will transfer to [facility] as per pulmonology if not intervention by pulmonary on Saturday morning. (2) Non-small cell lung cancer Current Visit: Yes Status: Acute Assessment and plan: Stage 4 NSC lung cancer. has recieved RT to left femur and chemotherapy with last dose on 11/13/16 Case discussed with oncology. will need to continue to follow up as an outpatient. 12/08/2016 oncology onboard and will have outpatient appointment. Qualifiers: Qualified Code(s): C34.90 - Malignant neoplasm of unspecified part of unspecified bronchus or lung (3) Anemia Current Visit: Yes Status: Acute Assessment and plan: likely from a combination of cancer, hemoptysis, malnutrition, and chemotherapy. currently stable. trend H/H as he has hemoptysis. Qualifiers: Anemia type: unspecified type Qualified Code(s): D64.9 - Anemia, unspecified (4) Tobacco abuse Current Visit: Yes Status: Acute Assessment and plan: advise cessation nicotine patch offered. (5) Malnutrition Current Visit: Yes Status: Acute Assessment and plan: nutrition consulted nithya benz. - Subjective Interval history: seen and examined. denies any further haemoptysis. drinking coffee. family at bedside. - Constitutional Vitals: Temp Pulse Resp BP Pulse Ox 98.3 F 99 16 122/73 96 12/08/16 07:00 12/08/16 07:00 12/08/16 07:00 12/08/16 07:00 12/08/16 07:00 General appearance: Present: cachectic, A&O X 3, pleasant, no acute distress, answers questions appropriately - Head Head exam: Present: atraumatic, normocephalic - Eye Eye exam: Present: PERRL, conjuntiva pink, sclera anicteric Pupils: Present: PERRL - Neck Neck exam general surgery: Present: supple, trachea midline. Absent: lymphadenopathy - Respiratory Respiratory exam: Present: CTAB. Absent: accessory muscle use, rales, rhonchi, wheezes - Cardiovascular Cardiovascular exam: Present: RRR, +S1, +S2. Absent: diastolic murmur, gallop, rubs, systolic murmur - GI/Abdominal GI/Abdominal exam: Present: normal bowel sounds, soft, no peritoneal signs. Absent: distended, tenderness - Extremities Exam Extremities exam: Present: warm, radial pulses palpable and symetrical. Absent : calf tenderness, cyanotic, pedal edema - Neurological Exam Neurological exam: Present: CN II-XII intact, oriented X3, no focal deficits. Absent: pronater drift, facial droop, speech deficit - Skin Skin exam: Present: dry, intact Internal Medicine: Result - Labs CBC & Chem 7: 12/07/16 20:53 12/07/16 05:27 Labs: Short CBC 12/07/16 12/07/16 12/07/16 Range/Units 08:59 16:13 20:53 Hgb 9.0 L 8.8 L 8.3 L (12.9-16.9) g/dL Hct 27.4 L 26.4 L 25.0 L (37.5-50.1) % - ABG Interpretation ABG results: PT/INR, D-dimer PT 13.6 Seconds (9.4-12.1) H 12/07/16 08:59 Consult Discharge Plan - Plan [facility] Provider[facility] - 12/20/16 12:30 pm
[2016-12-08] MEDS: 0.9 % Sodium Chloride 1,000 ML IVC SCH (09:44)
[2016-12-08] MEDS: Megestrol Acetate 400 MG/10 ML UDC PO SCH (09:46)
[2016-12-08] MEDS: Chlorhexidine Rinse 15 ML MOUTHWASH MM SCH ×2 (09:46→21:11)
[2016-12-08] MEDS: Methocarbamol 750 MG TABLET PO SCH ×2 (09:47→21:12)
[2016-12-08] MEDS: carBAMazepine 200 MG TABLET PO SCH ×3 (09:47→21:11)
[2016-12-08] MEDS: Nicotine 21 MG PATCH.TD24 TD SCH (09:47)
[2016-12-08] MEDS: predniSONE 20 MG TABLET PO SCH (09:47)
[2016-12-08] MEDS: Magnesium Oxide 400 MG TABLET PO SCH ×2 (09:50→21:11)
[2016-12-08] MEDS: Beclomethasone 80mcg MDI IH SCH ×2 (09:56→20:38)
[2016-12-08] MEDS: Acetylcysteine 10% 2 ML INHSOL IH SCH ×2 (09:58→20:37)
--- NOTE | 2016-12-08 10:25 | Oncology Inp Progress Note ---
Date of Encounter: 12/08/16 Time of Encounter: 10:00 (1) Squamous cell carcinoma of lung, stage IV Current Visit: Yes Status: Chronic Assessment and plan: 50 yo male with metastatic disease, stage IV. s/p RT palliative left femur treatments completed 06/12. s/p chemo carbo/abraxane-last dose 11/13 Hemoptysis-endobronchial lesion at the left main stem bronchus. Further debulking/cryo planned for next wk. Will plan palliative RT and chemotherapy at later date Nutrition evaluation for supplementation Pain in the left hip, s/p palliative RT--under control with prn oxycodone Plan as above d/w patient today by me. Qualifiers: Laterality: left Qualified Code(s): C34.92 - Malignant neoplasm of unspecified part of left bronchus or lung Oncology: Subj Interval history: s/p bronch and Rx bleeding site with thrombin Min cough --blood stained this AM Left hip pain at his baseline - Constitutional Vitals: Vital Signs Temp Pulse Pulse Pulse Pulse Pulse Pulse 12/08/16 09:59 12/08/16 07:00 98.3 F 99 12/08/16 04:27 12/08/16 03:00 97.5 F L 101 12/07/16 22:38 12/07/16 21:00 98.3 F 91 12/07/16 16:21 12/07/16 15:48 98.4 F 109 12/07/16 12:00 94 97 94 92 98 12/07/16 10:24 Pulse Pulse Resp Resp Resp Resp Resp 12/08/16 09:59 16 12/08/16 07:00 16 12/08/16 04:27 18 12/08/16 03:00 16 12/07/16 22:38 16 12/07/16 21:00 17 12/07/16 16:21 16 12/07/16 15:48 16 12/07/16 12:00 100 100 14 12 12 10 12/07/16 10:24 16 Resp Resp Resp BP BP BP BP 12/08/16 09:59 12/08/16 07:00 122/73 12/08/16 04:27 12/08/16 03:00 111/65 12/07/16 22:38 12/07/16 21:00 117/75 12/07/16 16:21 12/07/16 15:48 112/73 12/07/16 12:00 10 15 12 105/73 115/74 118/76 12/07/16 10:24 BP BP BP BP Pulse Ox 12/08/16 09:59 96 12/08/16 07:00 96 12/08/16 04:27 98 12/08/16 03:00 95 12/07/16 22:38 98 12/07/16 21:00 96 12/07/16 16:21 95 12/07/16 15:48 96 12/07/16 12:00 112/71 107/73 108/73 104/66 12/07/16 10:24 100 Intake and Output 12/07/16 12/08/16 12/08/16 23:59 07:59 15:59 Intake Total 200 / 200 100 / 100 1240 / 1240 Output Total 0 / 0 0 / 0 Balance 200 / 200 100 / 100 1240 / 1240 Intake: IV Fluids 1000 / 1000 0.9 % Sodium Chloride 1, 1000 / 1000 000 ML @ 75 mls/hr IVC . [id number] MARGARITA Rx#: [id number] Oral 200 / 200 100 / 100 240 / 240 Output: Urine 0 / 0 0 / 0 Other: Meal Dinner Breakfast Percent of Meal Consumed 70% 100% # Voids 1 1 Weight 47.7 kg Blood Glucose* 121 Patient Weight 12/08/16 23:59 Weight 47.7 kg Exam: feels better sitting up bed side Generally wk, thin built Neck no SC fullness or adenoapthy Chest [place] ae decreased CVS s1S2+ Abd Soft/NT Ext no edema or tenderness Oncology: Obj Data - Labs CBC & Chem 7: 12/07/16 20:53 12/07/16 05:27 Labs: Laboratory Results - last 24 hr 12/07/16 12/07/16 12/07/16 05:33 12:27 12:52 Hgb Hct POC Glucose 98 H 88 Serum Osmolality 268 L Uric Acid TSH Random Cortisol 12/07/16 12/07/16 12/07/16 12:52 16:13 20:35 Hgb 8.8 L Hct 26.4 L POC Glucose 121 H Serum Osmolality Uric Acid 2.0 L TSH 0.947 Random Cortisol 7.9 12/07/16 20:53 Hgb 8.3 L Hct 25.0 L POC Glucose Serum Osmolality Uric Acid TSH Random Cortisol - ABG Interpretation ABG results: PT/INR, D-dimer PT 13.6 Seconds (9.4-12.1) H 12/07/16 08:59 Consult Discharge Plan - Plan Referrals: MARTINA,PCP [Primary Care Provider] - 12/20/16 12:30 pm
--- NOTE | 2016-12-08 11:51 | Pulmonology Progress Note ---
Date of Encounter: 12/08/16 Time of Encounter: 11:49 Assessment and Plan (1) Cough with hemoptysis Current Visit: Yes Status: Acute Stage IV NSCLC in a smoker presenting with Distal Left mainstem mass with associated bleeding. Thrombin given. No signficant bleeding subsequent procedure. Plan for further interventional procedure saturday. If more significant bleeding in interim would transfer to referral facility please keep NPO on Saturday night. (2) COPD (chronic obstructive pulmonary disease) Current Visit: Yes Status: Acute cont steroids and BD's Qualifiers: COPD type: emphysema Emphysema type: unspecified Qualified Code(s): J43.9 - Emphysema, unspecified (3) DVT prophylaxis Current Visit: Yes Status: Acute recommend mechanical DVT prophylaxis with ongoing hemoptysis (4) Squamous cell carcinoma of lung, stage IV Current Visit: Yes Status: Chronic managed by Rad/ONC Oncology Qualifiers: Laterality: left Qualified Code(s): C34.92 - Malignant neoplasm of unspecified part of left bronchus or lung Subjective Principal diagnosis: Hemoptysis Interval history: Patient did well overnight minimal cough with lightly blood-tinged sputum no demetrius hemoptysis reported has been tolerating diet chest pain is resolved no untoward events from bronchoscopy Objective PUL Vital signs: Last Vital Signs Temp 98.3 F 12/08/16 11:00 Pulse 93 12/08/16 11:00 Resp 15 12/08/16 11:00 BP 122/72 12/08/16 11:00 Pulse Ox 97 12/08/16 11:00 General appearance: no acute distress Eyes: nonicteric Effort: normal Auscultation: bilateral: diminished breath sounds Cardiovascular: regular rate and rhythm Extremities: no edema normal mental status, non-focal exam Results - Laboratory Findings CBC and BMP: 12/07/16 20:53 12/07/16 05:27 PT/INR, D-dimer PT 13.6 Seconds (9.4-12.1) H 12/07/16 08:59 Abnormal lab findings: Abnormal lab results RBC 2.73 M/mcL (4.19-5.50) L 12/07/16 05:27 Hgb 8.3 g/dL (12.9-16.9) L 12/07/16 20:53 Hct 25.0 % (37.5-50.1) L 12/07/16 20:53 RDW 15.9 % (11.5-14.5) H 12/07/16 05:27 Plt Count 515 K/mcL (140-400) H 12/07/16 05:27 MPV 8.8 fL (9.4-12.4) L 12/07/16 05:27 Monocytes # 1.5 K/mcL (0.0-1.3) H 12/07/16 05:27 Platelet Estimate Increased (Normal) H 12/07/16 05:27 Anisocytosis 1+ (Not Present) A 12/07/16 05:27 PT 13.6 Seconds (9.4-12.1) H 12/07/16 08:59 Sodium 126 mEq/L (136-145) L 12/07/16 05:27 Potassium 4.7 mEq/L (3.5-4.5) H 12/07/16 05:27 Chloride 88 mEq/L (98-109) L 12/07/16 05:27 Creatinine 0.57 mg/dL (0.72-1.25) L 12/07/16 05:27 POC Glucose 121 (58-89) H 12/07/16 20:35 Serum Osmolality 268 mOsm/kg (280-300) L 12/07/16 12:52 Calculated Osmolality 262 (280-300) L 12/07/16 05:27 Uric Acid 2.0 mg/dL (3.5-7.2) L 12/07/16 12:52 - Clinical Findings Intake & Output: Intake & Output 12/07/16 12/08/16 12/08/16 23:59 07:59 15:59 Intake Total 200 / 200 100 / 100 1240 / 1240 Output Total 0 / 0 0 / 0 Balance 200 / 200 100 / 100 1240 / 1240 Weight 47.7 kg Consult Discharge Plan - Plan [facility]: [facility] - 12/20/16 12:30 pm
--- NOTE | 2016-12-08 12:01 | Palliative Progress Note ---
Date of Encounter: 12/08/16 Time of Encounter: 10:30 - Assessment and plan (1) Cancer associated pain Current Visit: Yes Status: Acute Assessment and plan: C/O left thigh pain from metastatic cancer. Active ROM but reports stiffness and soreness to left thigh. Currently has Oxycodone po but has not requested any to date. Educated on the having this available for comfort. Will follow progress. Also has Robaxin for muscle spasms. (2) Malnutrition Current Visit: Yes Status: Acute Assessment and plan: Patient frail and thin. Currently on megace and meal review indicates appetite has been good with meal consumption at 80-100%. Current weight 47.7kg. Encouraged to eat and Dietary following. (3) COPD (chronic obstructive pulmonary disease) Current Visit: Yes Status: Acute Assessment and plan: Supplemental O2 PRN, albuteral inhalers, prednisone and position for comfort. Qualifiers: COPD type: unspecified COPD Qualified Code(s): J44.9 - Chronic obstructive pulmonary disease, unspecified (4) Counseling regarding advanced care planning and goals of care Current Visit: Yes Status: Acute Assessment and plan: Patient is Full Code. Will follow progress of hemoptysis. (5) Cough with hemoptysis Current Visit: Yes Status: Acute Assessment and plan: Patient underwent bronchoscopy and had thrombin applied to fungating bleeding mass obstructing left mainstem bronchus. Patient scheduled for additional stenting of mass Saturday. Will follow progress. - Time Spent With Patient Total time spent is greater than 50% in coordination of care (as documented) at patient's floor/unit and/or counseling patient: 25 - 35 minutes - Subjective Interval history: Patient alert and oriented sitting up in bed. His brother is at bedside. Denies complaints or discomfort. Reports expectorating slightly bloody sputum. - Constitutional Vitals: Abnormal lab results RBC 2.73 M/mcL (4.19-5.50) L 12/07/16 05:27 Hgb 8.3 g/dL (12.9-16.9) L 12/07/16 20:53 Hct 25.0 % (37.5-50.1) L 12/07/16 20:53 RDW 15.9 % (11.5-14.5) H 12/07/16 05:27 Plt Count 515 K/mcL (140-400) H 12/07/16 05:27 MPV 8.8 fL (9.4-12.4) L 12/07/16 05:27 Monocytes # 1.5 K/mcL (0.0-1.3) H 12/07/16 05:27 Platelet Estimate Increased (Normal) H 12/07/16 05:27 Anisocytosis 1+ (Not Present) A 12/07/16 05:27 PT 13.6 Seconds (9.4-12.1) H 12/07/16 08:59 Sodium 126 mEq/L (136-145) L 12/07/16 05:27 Potassium 4.7 mEq/L (3.5-4.5) H 12/07/16 05:27 Chloride 88 mEq/L (98-109) L 12/07/16 05:27 Creatinine 0.57 mg/dL (0.72-1.25) L 12/07/16 05:27 POC Glucose 121 (58-89) H 12/07/16 20:35 Serum Osmolality 268 mOsm/kg (280-300) L 12/07/16 12:52 Calculated Osmolality 262 (280-300) L 12/07/16 05:27 Uric Acid 2.0 mg/dL (3.5-7.2) L 12/07/16 12:52 - Head Head exam: Present: atraumatic - Eye Eye exam: Present: PERRL Pupils: Present: PERRL - ENT ENT exam: Present: mucous membranes moist - Neck Neck exam: Present: full ROM - Respiratory Respiratory exam: Present: CTAB - Expanded Respiratory Exam Location: decreased breath sounds: Left, Right, Lower - Cardiovascular Cardiovascular exam: Present: RRR, +S1, +S2 - GI/Abdominal GI/Abdominal exam: Present: normal bowel sounds - Rectal Rectal exam: Present: deferred - Back Exam Back exam: Present: full ROM - Neurological Exam Neurological exam: Present: alert, CN II-XII intact, oriented X3 - Psychiatric Psychiatric exam: Present: normal affect - Skin Skin exam: Present: dry, warm Palliative Quality Palliative Quality: Screen for Code Status: Yes, Screen for Goals of Care: Yes, Screen for Pain: Yes, If Pain Regimen Started, Initiate Bowel Regimen: NA, Screen for Nausea/Vomitting: Yes Code Status: 12/06/16 17:03 Resuscitation Status: Active [RES] Routine Comment: Resuscitation Status: Full Code - Labs CBC & Chem 7: 12/07/16 20:53 12/07/16 05:27 Labs: Laboratory Results - last 24 hr 12/07/16 12/07/16 12/07/16 12:27 12:52 12:52 Hgb Hct POC Glucose 88 Serum Osmolality 268 L Uric Acid 2.0 L TSH 0.947 Random Cortisol 7.9 12/07/16 12/07/16 12/07/16 16:13 20:35 20:53 Hgb 8.8 L 8.3 L Hct 26.4 L 25.0 L POC Glucose 121 H Serum Osmolality Uric Acid TSH Random Cortisol - ABG Interpretation ABG results: PT/INR, D-dimer PT 13.6 Seconds (9.4-12.1) H 12/07/16 08:59 Consult Discharge Plan - Plan Referrals: [facility] [Primary Care Provider] - 12/20/16 12:30 pm
[2016-12-08] MEDS: *HR* OxyCODONE Immed Rel 5 MG TABLET PO PRN (15:55)
[2016-12-08] MEDS: (Olodaterol Hcl [Striverdi Respimat] 2 PUFF) IH SCH (17:17)
[2016-12-09] MEDS: 0.9 % Sodium Chloride 1,000 ML IVC SCH ×2 (00:57→14:23)
[2016-12-09] MEDS: Mag Hydrox/Al Hydrox/Simeth 30 ML UDC PO PRN (01:13)
[2016-12-09] MEDS: Ipratropium/Albuterol Neb 3 ML IH SCH ×4 (04:18→22:59)
[2016-12-09] MEDS: Ipratropium 1 PUFF INHALER IH SCH ×4 (04:19→23:10)
[2016-12-09] MEDS: levETIRAcetam 250 MG TABLET PO SCH ×2 (05:54→17:05)
[2016-12-09 06:24] LABS: Basophils % 0.4 %; Eosinophils # 0.4 K/mcL (0.0-0.6); Eosinophils % 4.5 %; Hematocrit 28.1 % (37.5-50.1); Hemoglobin 9.1 g/dL (12.9-16.9); Immature Granulocytes % 0.5 % (0-4); Lymphocytes # 2.2 K/mcL (0.6-4.6); Lymphocytes % 23.2 %; Mean Corpuscular HGB Conc 32.4 g/dL (31.6-35.5); Mean Corpuscular Hemoglobin 31.4 pg (28.0-33.3); Mean Corpuscular Volume 96.9 fL (83.0-100.0); Mean Platelet Volume 9.2 fL (9.4-12.4); Monocytes # 1.1 K/mcL (0.0-1.3); Monocytes % 11.3 %; Neutrophils # 5.8 K/mcL (1.6-8.9); Platelet Count 589 K/mcL (140-400); Red Cell Distribution Width 15.8 % (11.5-14.5); Segmented Neutrophils % 60.1 %
[2016-12-09 06:35] LABS: Alanine Aminotransferase 39 Units/L (0-55); Albumin 2.4 g/dL (3.5-5.0); Albumin/Globulin Ratio 0.4 (1.1-2.2); Alkaline Phosphatase 112 Units/L (38-126); Aspartate Amino Transferase 21 Units/L (5-34); BUN/Creatinine Ratio 17 (6-26); Bilirubin,Total 0.3 mg/dL (0.2-1.2); Blood Urea Nitrogen 11 mg/dL (8-26); Calcium 10.5 mg/dL (8.6-10.8); Carbon Dioxide 28 mEq/L (19-29); Chloride 91 mEq/L (98-109); Globulin 5.5 g/dL (2.4-3.5); Glucose 80 mg/dL (70-99); Osmolality,Calculated 262 (280-300); Potassium 4.8 mEq/L (3.5-4.5); Sodium 127 mEq/L (136-145); Total Protein 7.9 g/dL (6.0-8.3); eGFR For African Americans > 60 (> 60); eGFR For Non-African Americans > 60 (> 60)
[2016-12-09] MEDS: Methocarbamol 750 MG TABLET PO SCH ×2 (09:00→21:20)
[2016-12-09] MEDS: Megestrol Acetate 400 MG/10 ML UDC PO SCH (09:00)
[2016-12-09] MEDS: carBAMazepine 200 MG TABLET PO SCH ×3 (09:01→21:20)
[2016-12-09] MEDS: Magnesium Oxide 400 MG TABLET PO SCH ×2 (09:01→21:20)
[2016-12-09] MEDS: predniSONE 20 MG TABLET PO SCH (09:01)
[2016-12-09] MEDS: Chlorhexidine Rinse 15 ML MOUTHWASH MM SCH ×2 (09:05→21:21)
[2016-12-09] MEDS: Nicotine 21 MG PATCH.TD24 TD SCH (09:06)
[2016-12-09] MEDS: (Olodaterol Hcl [Striverdi Respimat] 2 PUFF) IH SCH (09:07)
--- NOTE | 2016-12-09 09:33 | Oncology Inp Progress Note ---
Date of Encounter: 12/09/16 Time of Encounter: 09:00 (1) Squamous cell carcinoma of lung, stage IV Current Visit: Yes Status: Chronic Assessment and plan: 50 yo male with metastatic disease, stage IV. s/p RT palliative left femur treatments completed 06/12. s/p chemo carbo/abraxane-last dose 11/13 Hemoptysis-endobronchial lesion at the left main stem bronchus. Further debulking/cryo planned for next wk. Will plan palliative RT and chemotherapy at later date Nutrition palliative input appreciated. He has eaten well today. Wt loss- nutrition evaluation placed Pain in the left hip, s/p palliative RT--under control with prn oxycodone Plan as above d/w patient today by me. Qualifiers: Laterality: left Qualified Code(s): C34.92 - Malignant neoplasm of unspecified part of left bronchus or lung Oncology: Subj Interval history: Patient is resting without oxygen, finished breakfast tray. Cough/congestion - Constitutional Vitals: Vital Signs Temp Pulse Resp BP Pulse Ox 12/09/16 07:15 98.3 F 109 15 124/73 98 12/09/16 04:32 98.4 F 103 15 121/68 100 12/09/16 04:19 18 99 12/09/16 00:43 97.7 F 96 16 121/68 98 12/08/16 20:41 18 95 12/08/16 19:43 98.0 F 107 16 128/90 96 12/08/16 15:30 15 97 12/08/16 15:00 98.3 F 105 15 133/77 97 12/08/16 11:00 98.3 F 93 15 122/72 97 12/08/16 09:59 16 96 Intake and Output 12/08/16 12/09/16 12/09/16 23:59 07:59 15:59 Intake Total 1240 / 1240 500 / 500 200 / 200 Balance 1240 / 1240 500 / 500 200 / 200 Intake: IV Fluids 1000 / 1000 0.9 % Sodium Chloride 1, 1000 / 1000 000 ML @ 75 mls/hr IVC . [id number] MARGARITA Rx#: [id number] Oral 240 / 240 500 / 500 200 / 200 Other: Meal Dinner Breakfast Percent of Meal Consumed 100% 100% # Voids 1 Weight 49 kg Patient Weight 12/09/16 23:59 Weight 49 kg General appearance: no acute distress, thin - Head Head exam: Present: atraumatic, normal inspection - Eye Eye exam: Present: sclera anicteric - ENT ENT exam: Present: mucous membranes moist - Neck Neck exam: Present: full ROM - Respiratory Additional comments: [place] air entry is decreased - Cardiovascular Cardiovascular exam: Present: +S1, +S2 Additional comments: tachycardia - GI/Abdominal GI/Abdominal exam: Present: normal bowel sounds, soft - Extremities Exam Additional comments: no edema or tenderness - Neurological Exam Neurological exam: Present: alert, oriented X3 Additional comments: speech deficit due to vocal cord dysfunction - Psychiatric Psychiatric exam: Present: normal mood Oncology: Obj Data - Labs CBC & Chem 7: 12/09/16 04:55 12/09/16 04:55 Labs: Laboratory Results - last 24 hr 12/09/16 12/09/16 04:55 04:55 WBC 9.6 RBC 2.90 L Hgb 9.1 L Hct 28.1 L MCV 96.9 MCH 31.4 MCHC 32.4 RDW 15.8 H Plt Count 589 H MPV 9.2 L Immature Gran % 0.5 Seg Neutrophils % 60.1 Lymphocytes % 23.2 Monocytes % 11.3 Eosinophils % 4.5 Basophils % 0.4 Neutrophils # 5.8 Lymphocytes # 2.2 Monocytes # 1.1 Eosinophils # 0.4 Basophils # 0.0 Sodium 127 L Potassium 4.8 H Chloride 91 L Carbon Dioxide 28 BUN 11 Creatinine 0.64 L Est GFR ( Amer) > 60 Est GFR (Non-Af Amer) > 60 BUN/Creatinine Ratio 17 Glucose 80 Calculated Osmolality 262 L Calcium 10.5 Total Bilirubin 0.3 AST 21 ALT 39 Alkaline Phosphatase 112 Serum Total Protein 7.9 Albumin 2.4 L Globulin 5.5 H Albumin/Globulin Ratio 0.4 L - ABG Interpretation ABG results: PT/INR, D-dimer PT 13.6 Seconds (9.4-12.1) H 12/07/16 08:59 Consult Discharge Plan - Plan [facility]: [facility] [[facility] Care Provider[facility] - 12/20/16 12:30 pm
[2016-12-09] MEDS: Beclomethasone 80mcg MDI IH SCH ×2 (09:35→22:58)
[2016-12-09] MEDS: Acetylcysteine 10% 2 ML INHSOL IH SCH ×2 (09:35→22:59)
--- NOTE | 2016-12-09 11:54 | Palliative Progress Note ---
Date of Encounter: 12/09/16 Time of Encounter: 11:00 - Assessment and plan (1) Cancer associated pain Current Visit: Yes Status: Acute Assessment and plan: Denies left thigh pain from metastatic cancer. Active ROM but reports stiffness and soreness to left thigh. Currently has Oxycodone po took one yesterday afternoon with relief. Educated on the having this available for comfort. Will follow progress. Also has Robaxin for muscle spasms. (2) Malnutrition Current Visit: Yes Status: Acute Assessment and plan: Patient frail and thin. Currently on megace and meal review indicates appetite has been good with meal consumption at 80-100%. Current weight 49 kg. Dietary following. (3) COPD (chronic obstructive pulmonary disease) Current Visit: Yes Status: Acute Qualifiers: COPD type: unspecified COPD Qualified Code(s): J44.9 - Chronic obstructive pulmonary disease, unspecified (4) Counseling regarding advanced care planning and goals of care Current Visit: Yes Status: Acute Assessment and plan: Patient is Full Code. Will follow progress of hemoptysis. (5) Cough with hemoptysis Current Visit: Yes Status: Acute Assessment and plan: Patient underwent bronchoscopy and had thrombin applied to fungating bleeding mass obstructing left mainstem bronchus. Case discussed with Dr. Zaragoza and patient will be scheduled for debulking/cryo in the AM per Dr. Neff. Updated patients mother on POC and time for procedure is pending as this is a potential add on case that might be later in day or scheduled for Saturday. Patient and mother verbalized understanding. - Time Spent With Patient Total time spent is greater than 50% in coordination of care (as documented) at patient's floor/unit and/or counseling patient: 25 - 35 minutes - Subjective Interval history: Patient alert and oriented sitting up in bed. His brother is at bedside. Denies complaints or discomfort. Reports expectorating slightly bloody sputum. - Constitutional Vitals: Abnormal lab results RBC 2.90 M/mcL (4.19-5.50) L 12/09/16 04:55 Hgb 9.1 g/dL (12.9-16.9) L 12/09/16 04:55 Hct 28.1 % (37.5-50.1) L 12/09/16 04:55 RDW 15.8 % (11.5-14.5) H 12/09/16 04:55 Plt Count 589 K/mcL (140-400) H 12/09/16 04:55 MPV 9.2 fL (9.4-12.4) L 12/09/16 04:55 Platelet Estimate Increased (Normal) H 12/07/16 05:27 Anisocytosis 1+ (Not Present) A 12/07/16 05:27 PT 13.6 Seconds (9.4-12.1) H 12/07/16 08:59 Sodium 127 mEq/L (136-145) L 12/09/16 04:55 Potassium 4.8 mEq/L (3.5-4.5) H 12/09/16 04:55 Chloride 91 mEq/L (98-109) L 12/09/16 04:55 Creatinine 0.64 mg/dL (0.72-1.25) L 12/09/16 04:55 POC Glucose 121 (58-89) H 12/07/16 20:35 Serum Osmolality 268 mOsm/kg (280-300) L 12/07/16 12:52 Calculated Osmolality 262 (280-300) L 12/09/16 04:55 Uric Acid 2.0 mg/dL (3.5-7.2) L 12/07/16 12:52 Albumin 2.4 g/dL (3.5-5.0) L 12/09/16 04:55 Globulin 5.5 g/dL (2.4-3.5) H 12/09/16 04:55 Albumin/Globulin Ratio 0.4 (1.1-2.2) L 12/09/16 04:55 - Head Head exam: Present: atraumatic - Eye Eye exam: Present: PERRL - ENT ENT exam: Present: mucous membranes moist - Neck Neck exam: Present: full ROM - Respiratory Respiratory exam: Present: CTAB - Cardiovascular Cardiovascular exam: Present: +S1, +S2 - GI/Abdominal GI/Abdominal exam: Present: normal bowel sounds - Rectal Rectal exam: Present: deferred - Back Exam Back exam: Present: full ROM - Neurological Exam Neurological exam: Present: alert, CN II-XII intact, oriented X3 - Psychiatric Psychiatric exam: Present: normal affect - Skin Skin exam: Present: pallor, warm Palliative Quality Palliative Quality: Screen for Code Status: Yes, Screen for Goals of Care: Yes, Screen for Pain: Yes, If Pain Regimen Started, Initiate Bowel Regimen: NA, Screen for Nausea/Vomitting: Yes Code Status: 12/06/16 17:03 Resuscitation Status: Active [RES] Routine Comment: Resuscitation Status: Full Code - Labs CBC & Chem 7: 12/09/16 04:55 12/09/16 04:55 Labs: Laboratory Results - last 24 hr 12/09/16 12/09/16 04:55 04:55 WBC 9.6 RBC 2.90 L Hgb 9.1 L Hct 28.1 L MCV 96.9 MCH 31.4 MCHC 32.4 RDW 15.8 H Plt Count 589 H MPV 9.2 L Immature Gran % 0.5 Seg Neutrophils % 60.1 Lymphocytes % 23.2 Monocytes % 11.3 Eosinophils % 4.5 Basophils % 0.4 Neutrophils # 5.8 Lymphocytes # 2.2 Monocytes # 1.1 Eosinophils # 0.4 Basophils # 0.0 Sodium 127 L Potassium 4.8 H Chloride 91 L Carbon Dioxide 28 BUN 11 Creatinine 0.64 L Est GFR ( Amer) > 60 Est GFR (Non-Af Amer) > 60 BUN/Creatinine Ratio 17 Glucose 80 Calculated Osmolality 262 L Calcium 10.5 Total Bilirubin 0.3 AST 21 ALT 39 Alkaline Phosphatase 112 Serum Total Protein 7.9 Albumin 2.4 L Globulin 5.5 H Albumin/Globulin Ratio 0.4 L - ABG Interpretation ABG results: PT/INR, D-dimer PT 13.6 Seconds (9.4-12.1) H 12/07/16 08:59 Consult Discharge Plan - Plan Referrals: MARTINA,PCP [Primary Care Provider] - 12/20/16 12:30 pm
--- NOTE | 2016-12-09 13:27 | Internal Med Progress Note ---
Date of Encounter: 12/09/16 Time of Encounter: 13:25 - Assessment and plan (1) Hemoptysis Current Visit: Yes Status: Acute Assessment and plan: likely from lung cancer. Hg stable Pulmonology consulted with bronchoscopy planned for today. follow H/H. 12/08/2016 stable H and H no more hemoptysis S/P Brochoscopy with thrombin application on left sided fungating tumor. Pulmonary on board. if further hemoptysis then will transfer to [facility] as per pulmonology if not intervention by pulmonary on Saturday morning. 12/09/2016. His hemoglobin and hematocrit is stable. No more hemoptysis. Seen by pulmonary and oncology. Possible intervention tomorrow. We will keep nothing by mouth from midnight (2) Non-small cell lung cancer Current Visit: Yes Status: Acute Assessment and plan: Stage 4 NSC lung cancer. has recieved RT to left femur and chemotherapy with last dose on 11/13/16 Case discussed with oncology. will need to continue to follow up as an outpatient. 12/08/2016 oncology onboard and will have outpatient appointment. Qualifiers: Qualified Code(s): C34.90 - Malignant neoplasm of unspecified part of unspecified bronchus or lung (3) Anemia Current Visit: Yes Status: Acute Assessment and plan: likely from a combination of cancer, hemoptysis, malnutrition, and chemotherapy. currently stable. trend H/H as he has hemoptysis. Qualifiers: Anemia type: unspecified type Qualified Code(s): D64.9 - Anemia, unspecified (4) Tobacco abuse Current Visit: Yes Status: Acute Assessment and plan: advise cessation nicotine patch offered. (5) Malnutrition Current Visit: Yes Status: Acute Assessment and plan: nutrition consulted nithya benz. - Subjective Interval history: seen and examined. denies any further haemoptysis. drinking coffee. family at bedside. 12/09/2016 Patient seen and examined. He ate his breakfast and lunch. Seen by oncology. - Constitutional Vitals: Temp Pulse Resp BP Pulse Ox 98.3 F 97 15 104/70 100 12/09/16 11:19 12/09/16 11:19 12/09/16 11:19 12/09/16 11:19 12/09/16 11:19 General appearance: Present: cachectic, A&O X 3, pleasant, no acute distress, answers questions appropriately - Head Head exam: Present: atraumatic, normocephalic - Eye Eye exam: Present: PERRL, conjuntiva pink, sclera anicteric Pupils: Present: PERRL - Neck Neck exam general surgery: Present: supple, trachea midline. Absent: lymphadenopathy - Respiratory Respiratory exam: Present: CTAB. Absent: accessory muscle use, rales, rhonchi, wheezes - Cardiovascular Cardiovascular exam: Present: RRR, +S1, +S2. Absent: diastolic murmur, gallop, rubs, systolic murmur - GI/Abdominal GI/Abdominal exam: Present: normal bowel sounds, soft, no peritoneal signs. Absent: distended, tenderness - Extremities Exam Extremities exam: Present: warm, radial pulses palpable and symetrical. Absent : calf tenderness, cyanotic, pedal edema - Neurological Exam Neurological exam: Present: CN II-XII intact, oriented X3, no focal deficits. Absent: pronater drift, facial droop, speech deficit - Skin Skin exam: Present: dry, intact Internal Medicine: Result - Labs CBC & Chem 7: 12/09/16 04:55 12/09/16 04:55 Labs: Short CBC 12/09/16 Range/Units 04:55 WBC 9.6 (4.3-11.1) K/mcL Hgb 9.1 L (12.9-16.9) g/dL Hct 28.1 L (37.5-50.1) % Plt Count 589 H (140-400) K/mcL Neutrophils # 5.8 (1.6-8.9) K/mcL BMP 12/09/16 04:55 Sodium 127 L Potassium 4.8 H Chloride 91 L Carbon Dioxide 28 BUN 11 Creatinine 0.64 L Glucose 80 Calcium 10.5 Liver Function 12/09/16 Range/Units 04:55 Total Bilirubin 0.3 (0.2-1.2) mg/dL AST 21 (5-34) Units/L ALT 39 (0-55) Units/L Alkaline Phosphatase 112 (38-126) Units/L Albumin 2.4 L (3.5-5.0) g/dL - ABG Interpretation ABG results: PT/INR, D-dimer PT 13.6 Seconds (9.4-12.1) H 12/07/16 08:59 Consult Discharge Plan - Plan [facility]: [facility] Care Provider[facility] - 12/20/16 12:30 pm
[2016-12-09] MEDS: *HR* OxyCODONE Immed Rel 5 MG TABLET PO PRN (14:21)
[2016-12-10] MEDS: 0.9 % Sodium Chloride 1,000 ML IVC SCH ×2 (04:00→20:11)
[2016-12-10] MEDS: Ipratropium/Albuterol Neb 3 ML IH SCH ×4 (04:44→23:04)
[2016-12-10] MEDS: Ipratropium 1 PUFF INHALER IH SCH ×4 (04:45→23:04)
[2016-12-10] MEDS: levETIRAcetam 250 MG TABLET PO SCH ×2 (05:13→18:23)
[2016-12-10 06:23] LABS: Basophils % 0.4 %; Eosinophils # 0.4 K/mcL (0.0-0.6); Eosinophils % 4.3 %; Hematocrit 25.2 % (37.5-50.1); Hemoglobin 8.1 g/dL (12.9-16.9); Immature Granulocytes % 0.8 % (0-4); Lymphocytes # 2.5 K/mcL (0.6-4.6); Lymphocytes % 25.9 %; Mean Corpuscular HGB Conc 32.1 g/dL (31.6-35.5); Mean Corpuscular Hemoglobin 31.2 pg (28.0-33.3); Mean Corpuscular Volume 96.9 fL (83.0-100.0); Mean Platelet Volume 8.9 fL (9.4-12.4); Monocytes # 1.2 K/mcL (0.0-1.3); Monocytes % 12.8 %; Neutrophils # 5.4 K/mcL (1.6-8.9); Platelet Count 507 K/mcL (140-400); Red Cell Distribution Width 15.9 % (11.5-14.5); Segmented Neutrophils % 55.8 %
[2016-12-10 06:43] LABS: Alanine Aminotransferase 30 Units/L (0-55); Albumin/Globulin Ratio 0.4 (1.1-2.2); Alkaline Phosphatase 92 Units/L (38-126); Aspartate Amino Transferase 23 Units/L (5-34); BUN/Creatinine Ratio 21 (6-26); Bilirubin,Total 0.1 mg/dL (0.2-1.2); Blood Urea Nitrogen 13 mg/dL (8-26); Calcium 10.1 mg/dL (8.6-10.8); Carbon Dioxide 28 mEq/L (19-29); Chloride 95 mEq/L (98-109); Globulin 4.8 g/dL (2.4-3.5); Glucose 80 mg/dL (70-99); Osmolality,Calculated 267 (280-300); Potassium 4.5 mEq/L (3.5-4.5); Sodium 129 mEq/L (136-145); Total Protein 6.8 g/dL (6.0-8.3); eGFR For African Americans > 60 (> 60); eGFR For Non-African Americans > 60 (> 60)
--- NOTE | 2016-12-10 09:24 | Internal Med Progress Note ---
<KenOmar - Last Filed: 12/10/16 09:45> Date of Encounter: 12/10/16 Time of Encounter: 09:22 - Assessment and plan (1) Hemoptysis Current Visit: Yes Status: Acute Assessment and plan: Ongoing. hgb slightly decreased from yesterday but no indication for transfusion at this time. likely related to lung cancer, plan for bronch today by pulmonology for evaluation and treatment. will keep patient NPO (2) Anemia Current Visit: Yes Status: Acute Assessment and plan: likely related to cancer, hemoptysis, malnutrition, and chemotherapy. Slight decrease in hgb today, probably related to ongoing hemoptysis. Bronch today to treatment of hemoptysis, continue to monitor h&h Qualifiers: Anemia type: unspecified type Qualified Code(s): D64.9 - Anemia, unspecified (3) Non-small cell lung cancer Current Visit: Yes Status: Acute Assessment and plan: Recently completed chemo, undergoing radiation. Oncology following. Palliative bronch planned for today. Qualifiers: Laterality: unspecified laterality Qualified Code(s): C34.90 - Malignant neoplasm of unspecified part of unspecified bronchus or lung (4) Malnutrition Current Visit: Yes Status: Acute Assessment and plan: Started on megace. nutrition consulted. will provide nutritional supplementation - Subjective Interval history: Patient seen and examined at bedside. Patient had active hemoptysis this morning. He denies dyspnea. Patient has been NPO - Constitutional Vitals: Temp Pulse Resp BP Pulse Ox 98.0 F 110 15 134/81 100 12/10/16 06:00 12/10/16 06:00 12/10/16 06:00 12/10/16 06:00 12/10/16 08:38 General appearance: Present: cachectic, A&O X 3, pleasant, no acute distress, answers questions appropriately - Respiratory Respiratory exam: Present: decreased breath sounds. Absent: rales, rhonchi, wheezes - Cardiovascular Cardiovascular exam: Present: RRR. Absent: gallop, rubs, systolic murmur - Extremities Exam Extremities exam: Present: warm. Absent: calf tenderness, pedal edema - Neurological Exam Neurological exam: Present: alert, CN II-XII intact, oriented X3, no focal deficits Internal Medicine: Result - Labs CBC & Chem 7: 12/10/16 05:40 12/10/16 05:40 Labs: Short CBC 12/10/16 Range/Units 05:40 WBC 9.7 (4.3-11.1) K/mcL Hgb 8.1 L (12.9-16.9) g/dL Hct 25.2 L (37.5-50.1) % Plt Count 507 H (140-400) K/mcL Neutrophils # 5.4 (1.6-8.9) K/mcL BMP 12/10/16 05:40 Sodium 129 L Potassium 4.5 Chloride 95 L Carbon Dioxide 28 BUN 13 Creatinine 0.62 L Glucose 80 Calcium 10.1 Liver Function 12/10/16 Range/Units 05:40 Total Bilirubin 0.1 L (0.2-1.2) mg/dL AST 23 (5-34) Units/L ALT 30 (0-55) Units/L Alkaline Phosphatase 92 (38-126) Units/L Albumin 2.0 L (3.5-5.0) g/dL - ABG Interpretation ABG results: PT/INR, D-dimer PT 13.6 Seconds (9.4-12.1) H 12/07/16 08:59 Consult Discharge Plan - Plan Referrals: [facility],PCP [Primary Care Provider] - 12/20/16 12:30 pm <Julian Campos P - Last Filed: 12/10/16 17:45> - Assessment and plan (1) Hemoptysis Current Visit: Yes Status: Acute (2) Non-small cell lung cancer Current Visit: Yes Status: Acute Qualifiers: Laterality: unspecified laterality Qualified Code(s): C34.90 - Malignant neoplasm of unspecified part of unspecified bronchus or lung (3) Anemia Current Visit: Yes Status: Acute Qualifiers: Anemia type: unspecified type Qualified Code(s): D64.9 - Anemia, unspecified (4) Tobacco abuse Current Visit: Yes Status: Acute (5) Malnutrition Current Visit: Yes Status: Acute - Constitutional Vitals: Temp Pulse Resp BP Pulse Ox 98 F 124 15 136/87 100 12/10/16 14:00 12/10/16 14:00 12/10/16 14:00 12/10/16 14:00 12/10/16 14:00 Internal Medicine: Result - Labs CBC & Chem 7: 12/10/16 05:40 12/10/16 05:40 Labs: Short CBC 12/10/16 Range/Units 05:40 WBC 9.7 (4.3-11.1) K/mcL Hgb 8.1 L (12.9-16.9) g/dL Hct 25.2 L (37.5-50.1) % Plt Count 507 H (140-400) K/mcL Neutrophils # 5.4 (1.6-8.9) K/mcL BMP 12/10/16 05:40 Sodium 129 L Potassium 4.5 Chloride 95 L Carbon Dioxide 28 BUN 13 Creatinine 0.62 L Glucose 80 Calcium 10.1 Liver Function 12/10/16 Range/Units 05:40 Total Bilirubin 0.1 L (0.2-1.2) mg/dL AST 23 (5-34) Units/L ALT 30 (0-55) Units/L Alkaline Phosphatase 92 (38-126) Units/L Albumin 2.0 L (3.5-5.0) g/dL - ABG Interpretation ABG results: PT/INR, D-dimer PT 13.6 Seconds (9.4-12.1) H 12/07/16 08:59 - Attending Attestation I examined this patient and my medical decision-making was reviewed with the CLAY HOISTER/PA/Advanced Practice Nurse/Resident Physician. I agree with the documented findings, disposition and treatment plan as described except to the extent set forth below.
[2016-12-10] MEDS: (Olodaterol Hcl [Striverdi Respimat] 2 PUFF) IH SCH (09:28)
--- NOTE | 2016-12-10 10:23 | Anesthesia Evaluation PreOp ---
Date of Encounter: 12/10/16 Time of Encounter: 10:21 - Past History Planned Operation: Bronchoscopy Cardiac History: HTN (maintained on Propanolol (likely for Anxiety/Tremors)) Pulmonary History: Smoker, COPD (O2 dependence. Maintained on ProAir, DuoNebs), Other (Cough/Hemoptysis. Stage IV L-Lung Ca s/p last chemo & radiation tx 2016. 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 Hx of Prostate CA.) Anesthesia History: Past Anesthesia (Hernia Repair) Alcohol Use: rarely Drug use: none Medications and Allergies Albuterol Sulfate [Proair Hfa] 2 puff IH QID PRN 04/03/16 [History] CarBAMazepine [Tegretol] 200 mg PO TID 04/03/16 [History] Diclofenac Sodium [Voltaren] 50 mg PO BID 04/03/16 [History] Ipratropium [Atrovent Inhaler] 2 puff IH QID 04/03/16 [History] LevETIRAcetam [Keppra] 1,000 mg PO Q12H 04/03/16 [History] Methocarbamol [Robaxin-750] 750 mg PO BID 04/03/16 [History] Mometasone Furoate [Asmanex] 1 puff IH BID 04/03/16 [History] Omeprazole [PriLOSEC] 20 mg PO BID 04/03/16 [History] Propranolol [Inderal] 10 mg PO TID 04/03/16 [History] Magic Mouthwash [Magic Mouthwash BLM] 10 ml PO QID PRN #240 ml 05/11/16 [Rx] Ondansetron [Zofran] 4 mg PO Q8HR PRN #90 tablet 05/11/16 [Rx] Prochlorperazine Maleate [Compazine] 10 mg PO Q8HR PRN #90 tablet 05/11/16 [Rx] Guaifenesin [Mucinex] 600 mg PO BID #60 tab.er.12h 08/06/16 [Rx] Acetaminophen [Tylenol] 650 mg PO Q6HR PRN 12/06/16 [History] Acetylcysteine 10% 1 ml IH BID 12/06/16 [History] Chlorhexidine Gluconate [Peridex] 15 ml MM BID 12/06/16 [History] Ipratropium/Albuterol Neb [Duoneb] 3 ml IH Q6HR 12/06/16 [History] Mag Hydrox/Al Hydrox/Simeth [Antacid Suspension] 10 ml PO Q6H PRN 12/06/16 [ History] Magnesium Oxide [Mag-Ox] 400 mg PO BID 12/06/16 [History] Nicotine Patch [Nicoderm] 21 mg TD DAILY 12/06/16 [History] Olodaterol HCl [Striverdi Respimat] 2 puff IH DAILY 12/06/16 [History] Ondansetron [Zofran] 4 mg IVP Q4H PRN 12/06/16 [History] OxyCODONE Immed Rel [Roxicodone 5 MG] 5 mg PO Q4H PRN 12/06/16 [History] PredniSONE 20 mg PO DAILY 12/06/16 [History] Allergies iodine Allergy (Verified 03/22/16 11:57) Rash lamotrigine Allergy (Verified 05/21/16 16:37) Rash Iodinated Contrast Media - Oral and Adverse Reaction (Verified 12/06/16 15:43) See Comments Per [facility] list. - Meds/Allergy Pre-op Review Medications Reviewed: Yes Allergies Reviewed: Yes Beta Blockers on Current Med List: Yes (Propanolol) If Beta Blockers taken, Date/Time (Last Dose taken): 12/09/16 @ 5811 Anesthesia Results - Labs 12/10/16 05:40 12/10/16 05:40 Anesthesia Exam Vital Signs Temp Pulse Resp BP Pulse Ox 12/10/16 10:15 111 14 114/76 97 12/10/16 08:38 100 12/10/16 06:00 98.0 F 110 15 134/81 100 12/10/16 05:43 97.9 F 113 14 128/82 98 12/10/16 04:45 16 96 12/10/16 01:02 98.4 F 102 17 122/72 94 L 12/09/16 22:59 18 98 12/09/16 22:26 97.8 F 116 15 127/77 96 12/09/16 21:16 100 12/09/16 18:42 100 12/09/16 16:11 98.3 F 100 15 120/76 100 12/09/16 15:40 15 100 12/09/16 11:19 98.3 F 97 15 104/70 100 Intake and Output 12/09/16 12/10/16 12/10/16 23:59 07:59 15:59 Intake Total 120 / 120 1000 / 1000 0 / 0 Balance 120 / 120 1000 / 1000 0 / 0 Intake: IV Fluids 1000 / 1000 0.9 % Sodium Chloride 1, 1000 / 1000 000 ML @ 75 mls/hr IVC . 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 Motor: Normal RUE, Normal LUE, Normal RLE, Normal LLE, Normal Face [employer]ER Sensory: Normal: RUE, LUE, RLE, LLE, Face - Cardiac Rhythm: Regular Murmur: None - Pulmonary Breath Sounds: left Rales, left Rhonchi Anesthesia Assess/Plan ASA Score: 4 (Lung CA, COPD, Smoker, Malnutrition, Electrolyte disturbance, Anemia, Seizure d/o) Modified Radha Scale for Level of Consciousness: Cooperative, oriented, and tranquil Anesthetic Plan: General Monitoring Plan: Standard Monitors Recovery Plan: PACU Anes Supervising Prov Stmt: Pt seen/evaluated, R&B discussed, questions answered and consent obtained. Trish Toscano MD
[2016-12-10] MEDS ORDERED: Ipratropium/Albuterol Neb 3 ML ONE (10:24)
[2016-12-10] MEDS ORDERED: Ipratropium/Albuterol Neb 3 ML IH ONE (10:32)
[2016-12-10] MEDS: Beclomethasone 80mcg MDI IH SCH ×2 (10:39→23:04)
[2016-12-10] MEDS: Acetylcysteine 10% 2 ML INHSOL IH SCH ×2 (10:39→23:04)
[2016-12-10] MEDS ORDERED: *HR* FentaNYL (PF) 100 MCG/2 ML VIAL ONE (10:39)
[2016-12-10] MEDS ORDERED: 0.9 % Sodium Chloride 1,000 ML IVC SCH (10:45)
[2016-12-10] MEDS ORDERED: *HR* EPINEPHrine 1 MG/10 ML SYRINGE INTRATRACH PRN (11:09)
[2016-12-10] MEDS ORDERED: *HR* Propofol 500 MG/50 ML BOTTLE IVC ONE (11:56)
[2016-12-10] MEDS ORDERED: Lidocaine -MPF 2% 5 ML VIAL INFILT ONE (11:56)
[2016-12-10] MEDS ORDERED: *HR* Propofol 200 MG/20 ML VIAL IVP ONE (11:56)
[2016-12-10] MEDS ORDERED: *HR* Succinylcholine 200 MG/10 ML VIAL IVP ONE (11:56)
[2016-12-10] MEDS ORDERED: *HR* Phenylephrine 10 MG/ML VIAL IVC ONE (11:56)
[2016-12-10] MEDS ORDERED: Ondansetron 4 MG/2 ML VIAL IVP ONE (11:56)
[2016-12-10] MEDS ORDERED: Lidocaine -MPF 4% 5 ML AMPUL TP ONE (11:56)
--- NOTE | 2016-12-10 12:03 | Anesthesia Evaluation Post Op ---
Date of Encounter: 12/10/16 Time of Encounter: 12:02 - Vital Signs Vital Signs: Vital Signs/O2 Sat/Glucose, Most Recent Temp Pulse Resp BP Pulse Ox 98 F 119 16 129/71 97 12/10/16 12:00 12/10/16 12:00 12/10/16 12:00 12/10/16 12:00 12/10/16 12:00 Blood Glucose* 121 - Lungs Lungs: Rhonchi (baseline status secondary to luncg cancer) - Airway Airway: Non-obstructed - Cardiovascular Regular Rate, Baseline Rhythm - Mental Status Mental Status: Alert & Oriented, Answers Appropriately - Pain Pain Scale: 4 Pain Scale used: Coyle-Dario (Faces) - Nausea Vomiting Nausea Vomiting: Not Present - Hydration Hydration: NPO, Able to void Notes: 12/10/16 12:03 naac - Discharge PostOp Status: Transfer Patient to floor
--- NOTE | 2016-12-10 13:16 | Palliative Progress Note ---
Date of Encounter: 12/10/16 Time of Encounter: 09:25 - Assessment and plan (1) Cancer associated pain Current Visit: Yes Status: Acute Assessment and plan: Under control at this time continue current medications. (2) Cough with hemoptysis Current Visit: Yes Status: Acute Assessment and plan: Agent for bronchoscopy today. (3) Counseling regarding advanced care planning and goals of care Current Visit: Yes Status: Acute Assessment and plan: The patient continues to be full code pending the rhonchi auscultated today. His goals of care to continue his cancer therapy for as long as they have treatment to offer. (4) Malnutrition Current Visit: Yes Status: Acute Assessment and plan: The patient has been eating well and is currently nothing by mouth pending procedure but will return to a diet service procedures over. Patient indicates he is quite hungry. - Time Spent With Patient Total time spent is greater than 50% in coordination of care (as documented) at patient's floor/unit and/or counseling patient: - Subjective Interval history: The patient denies any pain, denies being particular short of breath. He does admit to having had some hemoptysis this morning and he is hungry. Looking forward to getting this procedure done so that he can eat. - Constitutional Vitals: Abnormal lab results RBC 2.60 M/mcL (4.19-5.50) L 12/10/16 05:40 Hgb 8.1 g/dL (12.9-16.9) L 12/10/16 05:40 Hct 25.2 % (37.5-50.1) L 12/10/16 05:40 RDW 15.9 % (11.5-14.5) H 12/10/16 05:40 Plt Count 507 K/mcL (140-400) H 12/10/16 05:40 MPV 8.9 fL (9.4-12.4) L 12/10/16 05:40 Platelet Estimate Increased (Normal) H 12/07/16 05:27 Anisocytosis 1+ (Not Present) A 12/07/16 05:27 PT 13.6 Seconds (9.4-12.1) H 12/07/16 08:59 Sodium 129 mEq/L (136-145) L 12/10/16 05:40 Chloride 95 mEq/L (98-109) L 12/10/16 05:40 Creatinine 0.62 mg/dL (0.72-1.25) L 12/10/16 05:40 POC Glucose 121 (58-89) H 12/07/16 20:35 Serum Osmolality 268 mOsm/kg (280-300) L 12/07/16 12:52 Calculated Osmolality 267 (280-300) L 12/10/16 05:40 Uric Acid 2.0 mg/dL (3.5-7.2) L 12/07/16 12:52 Total Bilirubin 0.1 mg/dL (0.2-1.2) L 12/10/16 05:40 Albumin 2.0 g/dL (3.5-5.0) L 12/10/16 05:40 Globulin 4.8 g/dL (2.4-3.5) H 12/10/16 05:40 Albumin/Globulin Ratio 0.4 (1.1-2.2) L 12/10/16 05:40 General appearance: Present: no acute distress - Head Head exam: Present: atraumatic, normal inspection - Eye Eye exam: Present: normal appearance - ENT ENT exam: Present: mucous membranes moist - Respiratory Respiratory exam: Present: decreased breath sounds - Cardiovascular Cardiovascular exam: Present: RRR, tachycardia - GI/Abdominal GI/Abdominal exam: Present: normal bowel sounds, soft. Absent: tenderness - Extremities Exam Extremities exam: Present: normal inspection. Absent: pedal edema, tenderness - Neurological Exam Neurological exam: Present: alert - Psychiatric Psychiatric exam: Present: normal affect, normal mood. Absent: agitated, anxious - Skin Skin exam: Present: dry, warm Palliative Quality Palliative Quality: Screen for Code Status: Yes, Screen for Goals of Care: Yes, Screen for Pain: Yes, If Pain Regimen Started, Initiate Bowel Regimen: NA, Screen for Nausea/Vomitting: Yes Code Status: 12/06/16 17:03 Resuscitation Status: Active [RES] Routine Comment: Resuscitation Status: Full Code - Labs CBC & Chem 7: 12/10/16 05:40 12/10/16 05:40 Labs: Laboratory Results - last 24 hr 12/10/16 12/10/16 05:40 05:40 WBC 9.7 RBC 2.60 L Hgb 8.1 L Hct 25.2 L MCV 96.9 MCH 31.2 MCHC 32.1 RDW 15.9 H Plt Count 507 H MPV 8.9 L Immature Gran % 0.8 Seg Neutrophils % 55.8 Lymphocytes % 25.9 Monocytes % 12.8 Eosinophils % 4.3 Basophils % 0.4 Neutrophils # 5.4 Lymphocytes # 2.5 Monocytes # 1.2 Eosinophils # 0.4 Basophils # 0.0 Sodium 129 L Potassium 4.5 Chloride 95 L Carbon Dioxide 28 BUN 13 Creatinine 0.62 L Est GFR ( Amer) > 60 Est GFR (Non-Af Amer) > 60 BUN/Creatinine Ratio 21 Glucose 80 Calculated Osmolality 267 L Calcium 10.1 Total Bilirubin 0.1 L AST 23 ALT 30 Alkaline Phosphatase 92 Serum Total Protein 6.8 Albumin 2.0 L Globulin 4.8 H Albumin/Globulin Ratio 0.4 L - ABG Interpretation ABG results: PT/INR, D-dimer PT 13.6 Seconds (9.4-12.1) H 12/07/16 08:59 Consult Discharge Plan - Plan Referrals: [facility],PCP [Primary Care Provider] - 12/20/16 12:30 pm
[2016-12-10] MEDS: Magnesium Oxide 400 MG TABLET PO SCH ×2 (13:39→20:13)
[2016-12-10] MEDS: *HR* OxyCODONE Immed Rel 5 MG TABLET PO PRN ×3 (13:39→23:11)
[2016-12-10] MEDS: predniSONE 20 MG TABLET PO SCH (13:39)
[2016-12-10] MEDS: Methocarbamol 750 MG TABLET PO SCH ×2 (13:39→20:12)
[2016-12-10] MEDS: Nicotine 21 MG PATCH.TD24 TD SCH (13:40)
[2016-12-10] MEDS: Chlorhexidine Rinse 15 ML MOUTHWASH MM SCH ×2 (13:41→20:10)
[2016-12-10] MEDS: Megestrol Acetate 400 MG/10 ML UDC PO SCH (13:41)
[2016-12-10] MEDS: carBAMazepine 200 MG TABLET PO SCH ×3 (13:42→20:12)
[2016-12-10] MEDS ORDERED: Budesonide/Formoterol 160/4.5 MDI IH SCH (22:00)
[2016-12-11] MEDS: Ipratropium/Albuterol Neb 3 ML IH SCH ×4 (04:07→21:25)
[2016-12-11] MEDS: Ipratropium 1 PUFF INHALER IH SCH ×2 (04:14→10:30)
[2016-12-11] MEDS: *HR* OxyCODONE Immed Rel 5 MG TABLET PO PRN ×4 (04:30→18:03)
[2016-12-11 05:44] LABS: Basophils % 0.3 %; Eosinophils # 0.3 K/mcL (0.0-0.6); Eosinophils % 2.3 %; Hematocrit 23.7 % (37.5-50.1); Hemoglobin 7.6 g/dL (12.9-16.9); Immature Granulocytes % 0.5 % (0-4); Lymphocytes # 2.8 K/mcL (0.6-4.6); Lymphocytes % 23.7 %; Mean Corpuscular HGB Conc 32.1 g/dL (31.6-35.5); Mean Corpuscular Hemoglobin 31.4 pg (28.0-33.3); Mean Corpuscular Volume 97.9 fL (83.0-100.0); Mean Platelet Volume 8.9 fL (9.4-12.4); Monocytes # 1.4 K/mcL (0.0-1.3); Monocytes % 11.3 %; Neutrophils # 7.4 K/mcL (1.6-8.9); Platelet Count 462 K/mcL (140-400); Red Blood Count 2.42 M/mcL (4.19-5.50); Red Cell Distribution Width 15.9 % (11.5-14.5); Segmented Neutrophils % 61.9 %
[2016-12-11 06:09] LABS: Alanine Aminotransferase 27 Units/L (0-55); Albumin 2.2 g/dL (3.5-5.0); Albumin/Globulin Ratio 0.5 (1.1-2.2); Alkaline Phosphatase 80 Units/L (38-126); Aspartate Amino Transferase 18 Units/L (5-34); BUN/Creatinine Ratio 25 (6-26); Bilirubin,Total 0.2 mg/dL (0.2-1.2); Blood Urea Nitrogen 14 mg/dL (8-26); Calcium 10.2 mg/dL (8.6-10.8); Carbon Dioxide 27 mEq/L (19-29); Chloride 95 mEq/L (98-109); Globulin 4.6 g/dL (2.4-3.5); Glucose 89 mg/dL (70-99); Osmolality,Calculated 266 (280-300); Sodium 128 mEq/L (136-145); Total Protein 6.8 g/dL (6.0-8.3); eGFR For African Americans > 60 (> 60); eGFR For Non-African Americans > 60 (> 60)
[2016-12-11] MEDS: Megestrol Acetate 400 MG/10 ML UDC PO SCH (08:48)
[2016-12-11] MEDS: levETIRAcetam 250 MG TABLET PO SCH ×2 (08:49→18:04)
[2016-12-11] MEDS: Chlorhexidine Rinse 15 ML MOUTHWASH MM SCH ×2 (08:49→21:09)
[2016-12-11] MEDS: predniSONE 20 MG TABLET PO SCH (08:49)
[2016-12-11] MEDS: carBAMazepine 200 MG TABLET PO SCH ×3 (08:49→21:07)
[2016-12-11] MEDS: Magnesium Oxide 400 MG TABLET PO SCH ×2 (08:50→21:09)
[2016-12-11] MEDS: 0.9 % Sodium Chloride 1,000 ML IVC SCH (08:50)
[2016-12-11] MEDS: Nicotine 21 MG PATCH.TD24 TD SCH (08:50)
[2016-12-11] MEDS: Methocarbamol 750 MG TABLET PO SCH ×2 (08:51→21:09)
[2016-12-11] MEDS: (Olodaterol Hcl [Striverdi Respimat] 2 PUFF) IH SCH (08:51)
[2016-12-11] MEDS: Acetylcysteine 10% 2 ML INHSOL IH SCH ×2 (10:32→21:25)
[2016-12-11] MEDS: Beclomethasone 80mcg MDI IH SCH ×2 (10:33→21:25)
--- NOTE | 2016-12-11 13:01 | Palliative Progress Note ---
Date of Encounter: 12/11/16 Time of Encounter: 09:40 - Assessment and plan (1) Nausea Current Visit: Yes Status: Acute (2) Cancer associated pain Current Visit: Yes Status: Acute Assessment and plan: Continue with PRN Oxycodone, pt has not required last 24 hours. (3) Counseling regarding advanced care planning and goals of care Current Visit: Yes Status: Acute Assessment and plan: Patient still with bleeding from lung mass - Dr. Neff in and discussed options with pt. Patient refusing transfer to [place] and states he will "go home" if they try and do so. He is agreeable to remain here and begin radiation as well as embolization with IR. Mother at bedside expressed concern for pt being alone. Discussed risks with his clinical situation. He refuses to discussed and states repeatedly " Im living alone". Discussed if he would be open to at least have lifeline so he would have access to call for help , - he did not respond to my questioning regarding this. Attempted to discuss code status again, which he would not discuss and continued to state "read my living will" and refused to discuss any farther. On his advanced directives completed, he did not name a power of compliance attorney. Will continue to follow. (4) COPD (chronic obstructive pulmonary disease) Current Visit: Yes Status: Acute Qualifiers: COPD type: emphysema Emphysema type: unspecified Qualified Code(s): J43.9 - Emphysema, unspecified (5) Cough with hemoptysis Current Visit: Yes Status: Acute (6) Squamous cell carcinoma of lung, stage IV Current Visit: Yes Status: Chronic Qualifiers: Laterality: left Qualified Code(s): C34.92 - Malignant neoplasm of unspecified part of left bronchus or lung - Time Spent With Patient Total time spent is greater than 50% in coordination of care (as documented) at patient's floor/unit and/or counseling patient: 25 - 35 minutes - Subjective Interval history: Patient up walking in room. Family at bedside. Still continues with hemoptysis after repeat bronch yesterday. Denies any pain or discomfort. Becomes irritated with much questioning. Stating he wants to go home. - Constitutional Vitals: Abnormal lab results WBC 12.0 K/mcL (4.3-11.1) H 12/11/16 05:13 RBC 2.42 M/mcL (4.19-5.50) L 12/11/16 05:13 Hgb 7.6 g/dL (12.9-16.9) L 12/11/16 05:13 Hct 23.7 % (37.5-50.1) L 12/11/16 05:13 RDW 15.9 % (11.5-14.5) H 12/11/16 05:13 Plt Count 462 K/mcL (140-400) H 12/11/16 05:13 MPV 8.9 fL (9.4-12.4) L 12/11/16 05:13 Monocytes # 1.4 K/mcL (0.0-1.3) H 12/11/16 05:13 Platelet Estimate Increased (Normal) H 12/07/16 05:27 Anisocytosis 1+ (Not Present) A 12/07/16 05:27 PT 13.6 Seconds (9.4-12.1) H 12/07/16 08:59 Sodium 128 mEq/L (136-145) L 12/11/16 05:13 Potassium 5.0 mEq/L (3.5-4.5) H 12/11/16 05:13 Chloride 95 mEq/L (98-109) L 12/11/16 05:13 Creatinine 0.56 mg/dL (0.72-1.25) L 12/11/16 05:13 POC Glucose 121 (58-89) H 12/07/16 20:35 Serum Osmolality 268 mOsm/kg (280-300) L 12/07/16 12:52 Calculated Osmolality 266 (280-300) L 12/11/16 05:13 Uric Acid 2.0 mg/dL (3.5-7.2) L 12/07/16 12:52 Albumin 2.2 g/dL (3.5-5.0) L 12/11/16 05:13 Globulin 4.6 g/dL (2.4-3.5) H 12/11/16 05:13 Albumin/Globulin Ratio 0.5 (1.1-2.2) L 12/11/16 05:13 General appearance: Present: no acute distress - Respiratory Additional comments: Breath sounds diminished significantly left lower lobe - Cardiovascular Cardiovascular exam: Present: +S1, +S2 - GI/Abdominal GI/Abdominal exam: Present: normal bowel sounds, soft - Neurological Exam Neurological exam: Present: alert, oriented X3, strengths equal and symetr throughout - Skin Skin exam: Present: dry, pallor, warm Palliative Quality Palliative Quality: Screen for Code Status: Yes, Screen for Goals of Care: Yes, Screen for Pain: Yes, If Pain Regimen Started, Initiate Bowel Regimen: NA, Screen for Nausea/Vomitting: Yes Code Status: 12/06/16 17:03 Resuscitation Status: Active [RES] Routine Comment: Resuscitation Status: Full Code - Labs CBC & Chem 7: 12/11/16 05:13 12/11/16 05:13 Labs: Laboratory Results - last 24 hr 12/11/16 12/11/16 12/11/16 05:13 05:13 06:38 WBC 12.0 H RBC 2.42 L Hgb 7.6 L Hct 23.7 L MCV 97.9 MCH 31.4 MCHC 32.1 RDW 15.9 H Plt Count 462 H MPV 8.9 L Immature Gran % 0.5 Seg Neutrophils % 61.9 Lymphocytes % 23.7 Monocytes % 11.3 Eosinophils % 2.3 Basophils % 0.3 Neutrophils # 7.4 Lymphocytes # 2.8 Monocytes # 1.4 H Eosinophils # 0.3 Basophils # 0.0 Sodium 128 L Potassium 5.0 H Chloride 95 L Carbon Dioxide 27 BUN 14 Creatinine 0.56 L Est GFR ( Amer) > 60 Est GFR (Non-Af Amer) > 60 BUN/Creatinine Ratio 25 Glucose 89 Calculated Osmolality 266 L Calcium 10.2 Total Bilirubin 0.2 AST 18 ALT 27 Alkaline Phosphatase 80 Serum Total Protein 6.8 Albumin 2.2 L Globulin 4.6 H Albumin/Globulin Ratio 0.5 L Blood Type A POSITIVE Antibody Screen NEGATIVE Crossmatch See Detail - ABG Interpretation ABG results: PT/INR, D-dimer PT 13.6 Seconds (9.4-12.1) H 12/07/16 08:59 Consult Discharge Plan - Plan Referrals: [facility] [Primary Care Provider] - 12/20/16 12:30 pm
[2016-12-11] MEDS ORDERED: 0.9 % Sodium Chloride 250 ML ONE (13:31)
--- NOTE | 2016-12-11 14:55 | RAD Oncology Progress Note ---
Radiation Oncology Dictation Date of Service: 12/11/16 - Oncology History Comments: 50-year-old male with history of prostate cancer treated with brachytherapy here at [facility], now with metastatic lung cancer. He has most recently had radiotherapy to his left femur. He presents now with progressive thoracic disease with hemoptysis for radiotherapy. We will plan to start thoracic radiotherapy for hemoptysis on 12/12/16 for a total of ten treatments. - Procedure Note Comments: CT Simulation and Treatment Planning Note Mr. Shabazz was brought into the CT Simulation suite and placed in the supine position. A custom vac-lock device for arm positioning was created. For comfort, a knee sponge was used. 3D CT Simulation was required secondary to irregular shape of the target volume , close proximity to critical normal structures. Critical normal structures adjacent to the target volume include the following: heart, lungs, esophagus, and spinal cord. [employer] software will be utilized to place an isocenter for treatment planning. This will be transferred to the lasers in the treatment room and will be used to chiquis the patient for daily positioning. 4D CT simulation was required due to movement of the target with respiration. An ITV will be contoured to capture this motion. An AP/PA plan will be utilized to deliver 3000 cGy in 10 fractions of 300 cGy each to the chest for hemoptysis. Daily imaging will be required to insure adequate treatment of the target volume and avoidance of critical normal structures with cone-beam CT secondary to the following: close margin between target volume and critical structures. We will align the daily imaging with simulation imaging daily with focus on the pipo and spine. This patient will require weekly monitoring in the form of on-treatment visits to assess for progression through treatment, ability to tolerate further treatment, and to assess for treatment-related side effects in order to manage them. Consent has been obtained, and the patient is amenable to treatment. The risks and benefits of radiotherapy have been explained, and the patient is agreeable to proceed. Thank you again for allowing us to participate in the care of this pleasant patient. Sincerely, Chaka Romo MD Radiation Oncologist [facility] [address] [place] [address]
--- NOTE | 2016-12-11 15:25 | Internal Med Progress Note ---
<PrachiOmar dutton - Last Filed: 12/11/16 15:22> Date of Encounter: 12/11/16 Time of Encounter: 15:22 - Assessment and plan (1) Hemoptysis Current Visit: Yes Status: Acute Assessment and plan: Ongoing. hgb slightly decreased from yesterday, down to 7.4, will transfuse 2 units. Patient had bronchoscopy yesterday with tumor debulking and cauterization however the patient had recurrent hemoptysis today. Spoke with the rewrite editor and we will arrange for embolization by interventional radiology tomorrow. (2) Anemia Current Visit: Yes Status: Acute Assessment and plan: likely related to cancer, hemoptysis, malnutrition, and chemotherapy. Slight decrease in hgb today, probably related to ongoing hemoptysis, we will transfuse 2 units, continue to monitor h&h Qualifiers: Anemia type: unspecified type Qualified Code(s): D64.9 - Anemia, unspecified (3) Non-small cell lung cancer Current Visit: Yes Status: Acute Assessment and plan: Recently completed chemo, undergoing radiation. Oncology following. Patient had radiation oncology treatment today. Qualifiers: Laterality: unspecified laterality Qualified Code(s): C34.90 - Malignant neoplasm of unspecified part of unspecified bronchus or lung (4) Malnutrition Current Visit: Yes Status: Acute Assessment and plan: Severe protein calorie malnutrition related to inadequate by mouth intake in the setting of chronic metastatic disease. Continue nutritional supplementation. - Subjective Interval history: Patient seen and examined at bedside. Patient had active hemoptysis this morning not having any hemoptysis overnight. He denies pain or dyspnea. - Constitutional Vitals: Temp Pulse Resp BP Pulse Ox 97.3 F L 120 18 125/74 93 L 12/11/16 14:12 12/11/16 14:12 12/11/16 14:12 12/11/16 14:12 12/11/16 14:12 General appearance: Present: cachectic, A&O X 3, pleasant, no acute distress, answers questions appropriately - Respiratory Respiratory exam: Present: decreased breath sounds, rhonchi (Scattered) - Cardiovascular Cardiovascular exam: Present: RRR. Absent: gallop, rubs, systolic murmur - GI/Abdominal GI/Abdominal exam: Present: normal bowel sounds, soft. Absent: distended, tenderness - Neurological Exam Neurological exam: Present: alert, CN II-XII intact, oriented X3 Internal Medicine: Result - Labs CBC & Chem 7: 12/11/16 05:13 12/11/16 05:13 Labs: Short CBC 12/11/16 Range/Units 05:13 WBC 12.0 H (4.3-11.1) K/mcL Hgb 7.6 L (12.9-16.9) g/dL Hct 23.7 L (37.5-50.1) % Plt Count 462 H (140-400) K/mcL Neutrophils # 7.4 (1.6-8.9) K/mcL BMP 12/11/16 05:13 Sodium 128 L Potassium 5.0 H Chloride 95 L Carbon Dioxide 27 BUN 14 Creatinine 0.56 L Glucose 89 Calcium 10.2 Liver Function 12/11/16 Range/Units 05:13 Total Bilirubin 0.2 (0.2-1.2) mg/dL AST 18 (5-34) Units/L ALT 27 (0-55) Units/L Alkaline Phosphatase 80 (38-126) Units/L Albumin 2.2 L (3.5-5.0) g/dL - ABG Interpretation ABG results: PT/INR, D-dimer PT 13.6 Seconds (9.4-12.1) H 12/07/16 08:59 Consult Discharge Plan - Plan Referrals: [place],PCP [Primary Care Provider] - 12/20/16 12:30 pm <Kahlil Melchor - Last Filed: 12/11/16 18:09> - Assessment and plan (1) Hemoptysis Current Visit: Yes Status: Acute (2) Squamous cell carcinoma of lung, stage IV Current Visit: Yes Status: Chronic Qualifiers: Laterality: left Qualified Code(s): C34.92 - Malignant neoplasm of unspecified part of left bronchus or lung (3) Anemia Current Visit: Yes Status: Acute Qualifiers: Anemia type: other cause Other causes of anemia: acute posthemorrhagic Qualified Code(s): D62 - Acute posthemorrhagic anemia (4) COPD (chronic obstructive pulmonary disease) Current Visit: Yes Status: Acute Qualifiers: COPD type: emphysema Emphysema type: unspecified Qualified Code(s): J43.9 - Emphysema, unspecified (5) Malnutrition Current Visit: Yes Status: Acute (6) Tobacco abuse Current Visit: Yes Status: Acute - Constitutional Vitals: Temp Pulse Resp BP Pulse Ox 98.5 F 121 16 132/83 99 12/11/16 16:33 12/11/16 16:33 12/11/16 16:45 12/11/16 16:33 12/11/16 16:45 Internal Medicine: Result - Labs CBC & Chem 7: 12/11/16 05:13 12/11/16 05:13 Labs: Short CBC 12/11/16 Range/Units 05:13 WBC 12.0 H (4.3-11.1) K/mcL Hgb 7.6 L (12.9-16.9) g/dL Hct 23.7 L (37.5-50.1) % Plt Count 462 H (140-400) K/mcL Neutrophils # 7.4 (1.6-8.9) K/mcL BMP 12/11/16 05:13 Sodium 128 L Potassium 5.0 H Chloride 95 L Carbon Dioxide 27 BUN 14 Creatinine 0.56 L Glucose 89 Calcium 10.2 Liver Function 12/11/16 Range/Units 05:13 Total Bilirubin 0.2 (0.2-1.2) mg/dL AST 18 (5-34) Units/L ALT 27 (0-55) Units/L Alkaline Phosphatase 80 (38-126) Units/L Albumin 2.2 L (3.5-5.0) g/dL - ABG Interpretation ABG results: PT/INR, D-dimer PT 13.6 Seconds (9.4-12.1) H 12/07/16 08:59 - Attending Attestation I examined this patient and my medical decision-making was reviewed with the Resident Physician on 12/11/16. I agree with the documented findings, disposition and treatment plan as described except to the extent set forth below. Mr. Shabazz is currently admitted for acute hemoptysis associated with lung mass and anemia due to acute blood loss. He remains high risk due to potential for worsening bleeding and respiratory distress. Mr Shabazz is going to radiation. He is breathing OK at this point. Has had some further bleeding during the night. Exam Alert. Comfortable Heart reg Some rhonchi present NO edema I/P 1. Hemoptysis 2. Small cell lung cancer 3. Posthemorrhagic anemia 4. Severe protein calorie malnutrition Further diagnoses and plan as above.
--- NOTE | 2016-12-11 18:11 | Oncology Inp Progress Note ---
Date of Encounter: 12/11/16 Time of Encounter: 09:00 (1) Squamous cell carcinoma of lung, stage IV Current Visit: Yes Status: Chronic Assessment and plan: 50 yo male with metastatic disease, stage IV. s/p RT palliative left femur treatments completed 06/12. s/p chemo carbo/abraxane-last dose 11/13 Hemoptysis-endobronchial lesion at the left main stem bronchus. Palliative RT planned. He wants to wait before pursuing any chemotherapy Ct nutritional supplements Steady drop in Hgb--transfuse PRBC, Hgb at 7.6 Denies pain in chest. Pain in the left hip, s/p palliative RT--under control with prn oxycodone Plan as above d/w patient today by me. Qualifiers: Qualified Code(s): C34.92 - Malignant neoplasm of unspecified part of left bronchus or lung Oncology: Subj Interval history: Seen By radiation today, strating Rx on 12/13/16. Cough+, Hemoptysis has decreased. Did not want to go to [facility]. No pain or SOB - Constitutional Vitals: Vital Signs Temp Pulse Resp BP Pulse Ox 12/11/16 16:45 16 99 12/11/16 16:33 98.5 F 121 16 132/83 92 L 12/11/16 14:12 97.3 F L 120 18 125/74 93 L 12/11/16 13:57 97.8 F 109 16 121/77 93 L 12/11/16 12:00 97.7 F 103 18 113/74 97 12/11/16 10:33 16 100 12/11/16 07:50 99.0 F 117 16 130/83 97 12/11/16 05:38 97.5 F L 111 16 122/71 97 12/11/16 04:08 20 95 12/11/16 00:45 97.6 F 105 12 127/87 96 12/10/16 21:43 98.3 F 122 16 115/76 95 Intake and Output 12/11/16 12/11/16 12/11/16 07:59 15:59 23:59 Intake Total 360 / 360 120 / 120 290 / 290 Output Total 525 / 525 160 / 160 100 / 100 Balance -165 / -165 -40 / -40 190 / 190 Intake: Oral 360 / 360 120 / 120 Blood Product 0 / 0 290 / 290 Rbcs Leuko Poor As-1 0 / 0 290 / 290 Unit [id number] Output: Urine 525 / 525 160 / 160 Other 100 / 100 Other: Meal Lunch Percent of Meal Consumed 80% Weight 53.3 kg Patient Weight 12/11/16 23:59 Weight 53.3 kg General appearance: thin - Head Head exam: Present: atraumatic, normocephalic - Eye Eye exam: Present: sclera anicteric - Neck Neck exam: Present: full ROM - Cardiovascular Cardiovascular exam: Present: +S1, +S2 - Neurological Exam Neurological exam: Present: alert, oriented X3 - Psychiatric Psychiatric exam: Present: normal affect Oncology: Obj Data - Labs CBC & Chem 7: 12/11/16 05:13 12/11/16 05:13 Labs: Laboratory Results - last 24 hr 12/11/16 12/11/16 12/11/16 05:13 05:13 06:38 WBC 12.0 H RBC 2.42 L Hgb 7.6 L Hct 23.7 L MCV 97.9 MCH 31.4 MCHC 32.1 RDW 15.9 H Plt Count 462 H MPV 8.9 L Immature Gran % 0.5 Seg Neutrophils % 61.9 Lymphocytes % 23.7 Monocytes % 11.3 Eosinophils % 2.3 Basophils % 0.3 Neutrophils # 7.4 Lymphocytes # 2.8 Monocytes # 1.4 H Eosinophils # 0.3 Basophils # 0.0 Sodium 128 L Potassium 5.0 H Chloride 95 L Carbon Dioxide 27 BUN 14 Creatinine 0.56 L Est GFR ( Amer) > 60 Est GFR (Non-Af Amer) > 60 BUN/Creatinine Ratio 25 Glucose 89 Calculated Osmolality 266 L Calcium 10.2 Total Bilirubin 0.2 AST 18 ALT 27 Alkaline Phosphatase 80 Serum Total Protein 6.8 Albumin 2.2 L Globulin 4.6 H Albumin/Globulin Ratio 0.5 L Blood Type A POSITIVE Antibody Screen NEGATIVE Crossmatch See Detail - ABG Interpretation ABG results: PT/INR, D-dimer PT 13.6 Seconds (9.4-12.1) H 12/07/16 08:59 Consult Discharge Plan - Plan Referrals: [facility]PC[facility] [Primary Care Provider] - 12/20/16 12:30 pm
--- NOTE | 2016-12-11 18:27 | Electrocardiograph Report ---
[address] [address] Test Date: 2016-12-10 Pat Name: Ivan Shabazz Department: 111 Room: 2NE22 Gender: Senior Case Manager: : [id number] Requested By: Kahlil Melchor Order Number: [id number] Reading MD: Brii Ochoa Measurements Intervals [place] Rate: 123 P: 88 NC: 124 QRS: -72 QRSD: 85 T: 77 QT: 275 QTc: 348 Interpretive Statements SINUS TACHYCARDIA MARKED LEFT AXIS DEVIATION PATTERN CONSISTENT WITH PULMONARY DISEASE POSSIBLE RIGHT VENTRICULAR CONDUCTION DELAY SEPTAL MYOCARDIAL INFARCTION, OF INDETERMINATE AGE Electronically Signed On 12-11-2016 18:25:48 EST by Brii Ochoa
--- NOTE | 2016-12-11 22:08 | Pulmonology Progress Note ---
Date of Encounter: 12/11/16 Time of Encounter: 09:25 Assessment and Plan (1) Hemoptysis Current Visit: Yes Status: Acute This is expected due to his significant endobronchial lesion. I have talked to primary team and palliative care and I have explained to patient about IR intervention. He agreed to have it done. I reviewed his CT with IR for bronchial artery embolization. Patient has allergy to iodine and plan to do intervention tomorrow. He remain full code and he doesn't want to be transferred to [facility]. I discussed with Dr. Romo and patient to have radiation treatment today. His hemoptysis after bronchoscopic intervention is not massive and mostly mixed with sputum. (2) COPD (chronic obstructive pulmonary disease) Current Visit: Yes Status: Chronic Bronchodilators Qualifiers: COPD type: emphysema Emphysema type: unspecified Qualified Code(s): J43.9 - Emphysema, unspecified (3) Non-small cell lung cancer Current Visit: Yes Status: Chronic Patient to be treated with radiation treatment. Qualifiers: Laterality: unspecified laterality Qualified Code(s): C34.90 - Malignant neoplasm of unspecified part of unspecified bronchus or lung Subjective Principal diagnosis: Hemoptysis Interval history: Patient was doing fine without hemoptysis, but now he had it some more. Objective PUL Vital signs: Last Vital Signs Temp 98.2 F 12/11/16 20:59 Pulse 98 12/11/16 20:59 Resp 14 12/11/16 21:29 BP 117/83 12/11/16 20:59 Pulse Ox 98 12/11/16 21:29 General appearance: lethargic, appears uncomfortable Eyes: nonicteric ENT: oropharynx dry Neck: supple Effort: normal, mildly labored Auscultation: bilateral: diminished breath sounds Cardiovascular: regular rate and rhythm Gastrointestinal: normoactive bowel sounds Extremities: no cyanosis normal mental status, non-focal exam depressed Results - Laboratory Findings CBC and BMP: 12/11/16 05:13 12/11/16 05:13 PT/INR, D-dimer PT 13.6 Seconds (9.4-12.1) H 12/07/16 08:59 Abnormal lab findings: Abnormal lab results WBC 12.0 K/mcL (4.3-11.1) H 12/11/16 05:13 RBC 2.42 M/mcL (4.19-5.50) L 12/11/16 05:13 Hgb 7.6 g/dL (12.9-16.9) L 12/11/16 05:13 Hct 23.7 % (37.5-50.1) L 12/11/16 05:13 RDW 15.9 % (11.5-14.5) H 12/11/16 05:13 Plt Count 462 K/mcL (140-400) H 12/11/16 05:13 MPV 8.9 fL (9.4-12.4) L 12/11/16 05:13 Monocytes # 1.4 K/mcL (0.0-1.3) H 12/11/16 05:13 Platelet Estimate Increased (Normal) H 12/07/16 05:27 Anisocytosis 1+ (Not Present) A 12/07/16 05:27 PT 13.6 Seconds (9.4-12.1) H 12/07/16 08:59 Sodium 128 mEq/L (136-145) L 12/11/16 05:13 Potassium 5.0 mEq/L (3.5-4.5) H 12/11/16 05:13 Chloride 95 mEq/L (98-109) L 12/11/16 05:13 Creatinine 0.56 mg/dL (0.72-1.25) L 12/11/16 05:13 POC Glucose 121 (58-89) H 12/07/16 20:35 Serum Osmolality 268 mOsm/kg (280-300) L 12/07/16 12:52 Calculated Osmolality 266 (280-300) L 12/11/16 05:13 Uric Acid 2.0 mg/dL (3.5-7.2) L 12/07/16 12:52 Albumin 2.2 g/dL (3.5-5.0) L 12/11/16 05:13 Globulin 4.6 g/dL (2.4-3.5) H 12/11/16 05:13 Albumin/Globulin Ratio 0.5 (1.1-2.2) L 12/11/16 05:13 - Clinical Findings Intake & Output: Intake & Output 12/11/16 12/11/16 12/11/16 07:59 15:59 23:59 Intake Total 360 / 360 120 / 120 1000 / 1000 Output Total 525 / 525 160 / 160 100 / 100 Balance -165 / -165 -40 / -40 900 / 900 Weight 53.3 kg Consult Discharge Plan - Plan Referrals: [facility],PCP [Primary Care Provider] - 12/20/16 12:30 pm
[2016-12-11] MEDS ORDERED: methylPREDNISolone 4 MG TABLET PO ONE (23:00)
[2016-12-12] MEDS: Ipratropium/Albuterol Neb 3 ML IH SCH ×2 (04:21→10:45)
[2016-12-12] MEDS: *HR* OxyCODONE Immed Rel 5 MG TABLET PO PRN ×2 (04:24→09:19)
[2016-12-12 06:24] LABS: Basophils # 0.1 K/mcL (0.0-0.2); Basophils % 0.6 %; Eosinophils # 0.6 K/mcL (0.0-0.6); Hematocrit 30.9 % (37.5-50.1); Immature Granulocytes % 0.5 % (0-4); Lymphocytes # 2.3 K/mcL (0.6-4.6); Mean Corpuscular Hemoglobin 30.9 pg (28.0-33.3); Mean Corpuscular Volume 93.6 fL (83.0-100.0); Mean Platelet Volume 9.2 fL (9.4-12.4); Monocytes # 1.2 K/mcL (0.0-1.3); Monocytes % 11.8 %; Neutrophils # 6.2 K/mcL (1.6-8.9); Platelet Count 437 K/mcL (140-400); Segmented Neutrophils % 59.1 %
[2016-12-12 06:37] LABS: BUN/Creatinine Ratio 19 (6-26); Blood Urea Nitrogen 10 mg/dL (8-26); Calcium 10.1 mg/dL (8.6-10.8); Carbon Dioxide 30 mEq/L (19-29); Chloride 93 mEq/L (98-109); Glucose 97 mg/dL (70-99); Osmolality,Calculated 269 (280-300); Potassium 4.8 mEq/L (3.5-4.5); Sodium 130 mEq/L (136-145); eGFR For African Americans > 60 (> 60); eGFR For Non-African Americans > 60 (> 60)
[2016-12-12] MEDS: levETIRAcetam 250 MG TABLET PO SCH (06:39)
[2016-12-12 06:44] LABS: Hemoglobin 10.2 g/dL (12.9-16.9)
[2016-12-12 07:40] VITALS: BP 146/93
[2016-12-12] MEDS ORDERED: methylPREDNISolone 4 MG TABLET PO ONE (09:00)
[2016-12-12] MEDS: (Olodaterol Hcl [Striverdi Respimat] 2 PUFF) IH SCH (09:04)
[2016-12-12] MEDS: 0.9 % Sodium Chloride 1,000 ML IVC SCH (09:20)
--- NOTE | 2016-12-12 09:51 | Palliative Progress Note ---
Date of Encounter: 12/12/16 Time of Encounter: 09:30 - Assessment and plan (1) Nausea Current Visit: Yes Status: Acute (2) Cancer associated pain Current Visit: Yes Status: Acute Assessment and plan: Continue Oxycodone. Utilized x4 last 24 hours. Monitor. (3) Counseling regarding advanced care planning and goals of care Current Visit: Yes Status: Acute Assessment and plan: D/W Dr. Melchor and Dr. Rogers. Anticipating discharge later today after embolization. Blood count stable. Social work has been in contact with [facility] to set up home based program, however, with his history of refusal, pt may not let them provide services in his home. He has refused to let home health in his home previously. (4) COPD (chronic obstructive pulmonary disease) Current Visit: Yes Status: Chronic Qualifiers: COPD type: emphysema Emphysema type: unspecified Qualified Code(s): J43.9 - Emphysema, unspecified (5) Cough with hemoptysis Current Visit: Yes Status: Acute (6) Squamous cell carcinoma of lung, stage IV Current Visit: Yes Status: Chronic Qualifiers: Laterality: left Qualified Code(s): C34.92 - Malignant neoplasm of unspecified part of left bronchus or lung - Time Spent With Patient Total time spent is greater than 50% in coordination of care (as documented) at patient's floor/unit and/or counseling patient: 25 - 35 minutes - Subjective Interval history: Patient awake and alert. Awaiting IR for embolization and he is frustrated re: NPO status. Desiring to be discharged after procedure today. Denies discomfort , states Oxycodone is effective. Mother at bedside. - Constitutional Vitals: Abnormal lab results RBC 3.30 M/mcL (4.19-5.50) L 12/12/16 05:30 Hgb 10.2 g/dL (12.9-16.9) L D 12/12/16 05:30 Hct 30.9 % (37.5-50.1) L 12/12/16 05:30 RDW 18.0 % (11.5-14.5) H 12/12/16 05:30 Plt Count 437 K/mcL (140-400) H 12/12/16 05:30 MPV 9.2 fL (9.4-12.4) L 12/12/16 05:30 Platelet Estimate Increased (Normal) H 12/07/16 05:27 Anisocytosis 1+ (Not Present) A 12/07/16 05:27 PT 13.6 Seconds (9.4-12.1) H 12/07/16 08:59 Sodium 130 mEq/L (136-145) L 12/12/16 05:30 Potassium 4.8 mEq/L (3.5-4.5) H 12/12/16 05:30 Chloride 93 mEq/L (98-109) L 12/12/16 05:30 Carbon Dioxide 30 mEq/L (19-29) H 12/12/16 05:30 Creatinine 0.54 mg/dL (0.72-1.25) L 12/12/16 05:30 POC Glucose 121 (58-89) H 12/07/16 20:35 Serum Osmolality 268 mOsm/kg (280-300) L 12/07/16 12:52 Calculated Osmolality 269 (280-300) L 12/12/16 05:30 Uric Acid 2.0 mg/dL (3.5-7.2) L 12/07/16 12:52 Albumin 2.2 g/dL (3.5-5.0) L 12/11/16 05:13 Globulin 4.6 g/dL (2.4-3.5) H 12/11/16 05:13 Albumin/Globulin Ratio 0.5 (1.1-2.2) L 12/11/16 05:13 General appearance: Present: no acute distress - Expanded Respiratory Exam Location: decreased breath sounds: Left, Upper, Lower - Cardiovascular Cardiovascular exam: Present: +S1, +S2 - GI/Abdominal GI/Abdominal exam: Present: normal bowel sounds, soft - Extremities Exam Extremities exam: Present: normal capillary refill, normal inspection - Psychiatric Psychiatric exam: Present: flat affect - Skin Skin exam: Present: dry, pallor, warm Palliative Quality Palliative Quality: Screen for Code Status: Yes, Screen for Goals of Care: Yes, Screen for Pain: Yes, If Pain Regimen Started, Initiate Bowel Regimen: NA, Screen for Nausea/Vomitting: Yes Code Status: 12/06/16 17:03 Resuscitation Status: Active [RES] Routine Comment: Resuscitation Status: Full Code - Labs CBC & Chem 7: 12/12/16 05:30 12/12/16 05:30 Labs: Laboratory Results - last 24 hr 12/11/16 12/12/16 12/12/16 06:38 05:30 05:30 WBC 10.5 RBC 3.30 L Hgb 10.2 L D Hct 30.9 L MCV 93.6 MCH 30.9 MCHC 33.0 RDW 18.0 H Plt Count 437 H MPV 9.2 L Immature Gran % 0.5 Seg Neutrophils % 59.1 Lymphocytes % 22.0 Monocytes % 11.8 Eosinophils % 6.0 Basophils % 0.6 Neutrophils # 6.2 Lymphocytes # 2.3 Monocytes # 1.2 Eosinophils # 0.6 Basophils # 0.1 Sodium 130 L Potassium 4.8 H Chloride 93 L Carbon Dioxide 30 H BUN 10 Creatinine 0.54 L Est GFR ( Amer) > 60 Est GFR (Non-Af Amer) > 60 BUN/Creatinine Ratio 19 Glucose 97 Calculated Osmolality 269 L Calcium 10.1 Blood Type A POSITIVE Antibody Screen NEGATIVE Crossmatch See Detail - ABG Interpretation ABG results: PT/INR, D-dimer PT 13.6 Seconds (9.4-12.1) H 12/07/16 08:59 Consult Discharge Plan - Plan Referrals: [facility],PCP [Primary Care Provider] - 12/20/16 12:30 pm
[2016-12-12] MEDS: Acetylcysteine 10% 2 ML INHSOL IH SCH (10:45)
[2016-12-12] MEDS: Beclomethasone 80mcg MDI IH SCH (10:45)
--- NOTE | 2016-12-12 13:16 | Discharge Summary ---
<Omar Rogers - Last Filed: 12/12/16 14:17> Date of Encounter: 12/12/16 Time of Encounter: 11:00 - Discharge Diagnosis (1) Hemoptysis Priority: Primary Status: Acute (2) Anemia Priority: Primary Status: Acute Qualifiers: Anemia type: other cause Other causes of anemia: acute posthemorrhagic Qualified Code(s): D62 - Acute posthemorrhagic anemia (3) Non-small cell lung cancer Priority: Primary Status: Chronic Qualifiers: Laterality: unspecified laterality Qualified Code(s): C34.90 - Malignant neoplasm of unspecified part of unspecified bronchus or lung (4) Malnutrition Priority: Secondary Status: Chronic - Discharge Medications Prescriptions: Megestrol Acetate [Megace] 400 mg PO DAILY #30 [facility] [place] Home Medications: Albuterol Sulfate [Proair Hfa] 2 puff IH QID PRN 04/03/16 [History] CarBAMazepine [Tegretol] 200 mg PO TID 04/03/16 [History] Diclofenac Sodium [Voltaren] 50 mg PO BID 04/03/16 [History] Ipratropium [ATROVENT Inhaler] 2 puff IH QID 04/03/16 [History] LevETIRAcetam [Keppra] 1,000 mg PO Q12H 04/03/16 [History] Methocarbamol [Robaxin-750] 750 mg PO BID 04/03/16 [History] Mometasone Furoate [Asmanex] 1 puff IH BID 04/03/16 [History] Omeprazole [PriLOSEC] 20 mg PO BID 04/03/16 [History] Propranolol [Inderal] 10 mg PO TID 04/03/16 [History] Magic Mouthwash [Magic Mouthwash BLM] 10 ml PO QID PRN #240 ml 05/11/16 [Rx] Ondansetron [Zofran] 4 mg PO Q8HR PRN #90 tablet 05/11/16 [Rx] Prochlorperazine Maleate [Compazine] 10 mg PO Q8HR PRN #90 tablet 05/11/16 [Rx] Guaifenesin [Mucinex] 600 mg PO BID #60 tab.er.12h 08/06/16 [Rx] Acetaminophen [Tylenol] 650 mg PO Q6HR PRN 12/06/16 [History] Acetylcysteine 10% 1 ml IH BID 12/06/16 [History] Chlorhexidine Gluconate [Peridex] 15 ml MM BID 12/06/16 [History] Ipratropium/Albuterol Neb [Duoneb] 3 ml IH Q6HR 12/06/16 [History] Mag Hydrox/Al Hydrox/Simeth [Antacid Suspension] 10 ml PO Q6H PRN 12/06/16 [ History] Magnesium Oxide [Mag-Ox] 400 mg PO BID 12/06/16 [History] Nicotine Patch [Nicoderm] 21 mg TD DAILY 12/06/16 [History] Olodaterol HCl [Striverdi Respimat] 2 puff IH DAILY 12/06/16 [History] OxyCODONE Immed Rel [Roxicodone 5 MG] 5 mg PO Q4H PRN 12/06/16 [History] PredniSONE 20 mg PO DAILY 12/06/16 [History] Megestrol Acetate [Megace] 400 mg PO DAILY #30 [facility] 12/12/16 [Rx] Allergies/Adverse Reactions: Allergies iodine Allergy (Verified 03/22/16 11:57) Rash lamotrigine Allergy (Verified 05/21/16 16:37) Rash Iodinated Contrast Media - Oral and Adverse Reaction (Verified 12/06/16 15:43) See Comments Per [facility]. Procedures/tests Complete & Pending: Procedures Performed prior 72 hours Category Date Time Status CT angio chest [CT] Routine Cat Scan 12/12/16 13:00 Ordered IR embolization any meth [IR] Routine IR 12/12/16 Ordered IR us guide needle place [IR] Routine IR 12/12/16 Ordered ECG 12 lead ECG [ECG] Routine Y 12/10/16 18:12 Completed Date of admission: 12/06/16 15:06 [facility] care physician: [facility] Consults: 12/06/16 15:35 Consult to Pol[facility] Brass [CONS] Routine Reason for SW Consult: [facility] 12/06/16 18:03 Consult to Pulmonology [CONS] Routine Consulting Provider: [facility] Reason for Consult: hemoptysis Time Notified: 17:30 Call Completed: Yes 12/06/16 18:04 Consult to Oncology [CONS] Routine Consulting Provider: [facility] Reason for Consult: Lung CA- hemoptysis Time Notified: 18:00 Call Completed: Yes 12/06/16 18:05 Consult to Palliative Care [CONS] Routine Comment: Consulting Provider: [facility] Dee 12/11/16 11:42 Consult to Interventional Radiology [CONS] Routine Consulting Provider: Radiology Laura Colgillian Reason for Consult: Hemoptysis/possible embolization Call Completed: Yes Discharging clinician: Omar Rogers Anticipated date of discharge: 12/12/16 - Patient Status Disposition: Home, Self-Care Condition: Fair Functional capacity at discharge: independent ambulation Overall status at discharge: patient is progressing back to baseline - Discharge Instructions Instructions: Megestrol Acetate (By mouth), Acute Hemoptysis (DC), Acute Hemoptysis (GEN), Lung Cancer, Sound Controller (GEN) Follow Up With: [place],PCP [Primary Care Provider] - 12/20/16 12:30 pm Additional Instructions: Please follow up with the [place] [facility]. Please restart her home medications as directed. Please start Megace daily. Please return for any new or worsening symptoms, including coughing up blood - Diet and Activity Activity: increase activity as tolerated, wear oxygen at all times Diet: advance to your usual diet Interval History: Patient seen and examined today at bedside. Patient states he subsequently slowly. He is time. He denies hemoptysis, cough, shortness of breath. Hospital course: Mr. Shabazz is a 50 year old male with history of lung cancer presented with hemoptysis. Patient underwent initial bronchoscopy which revealed known large fungating mass that was easily friable and bleeding. He was treated with epinephrine to encourage hemostasis. Post procedure the patient continued to have hemoptysis and 2 days later had a repeat bronchoscopy with debulking of the tumor and argon plasma cauterization. The patient had a small amount of hemoptysis post procedure. He was then evaluated by interventional radiology for possible embolization. Interventional radiology reviewed his images and felt that the procedure would be extremely risky in this patient so was decided by his care team including interventional radiology, pulmonology to hold off on embolization at this time. The patient will be discharged and will go to the cancer Center for radiation treatment. The patient has not hemoptysis last 24 hours. Prior to discharge the patient's hemoglobin was noted to be 7.6 so he was transfused 2 units packed red blood cells. Hemoglobin on the day of discharge was 10.2. Patient will be discharged in stable condition. - Time Spent with Patient Total time spent providing and/or coordinating discharge services: - Constitutional Vitals: Temp Pulse Resp BP Pulse Ox 99.2 F 120 16 146/93 98 12/12/16 07:37 12/12/16 07:37 12/12/16 10:47 12/12/16 07:37 12/12/16 10:47 General appearance: Present: cachectic, A&O X 3, no acute distress, answers questions appropriately - Respiratory Respiratory exam: Present: decreased breath sounds, wheezes (Occasional scattered). Absent: rales, rhonchi - Cardiovascular Cardiovascular exam: Present: RRR. Absent: gallop, rubs, systolic murmur - GI/Abdominal GI/Abdominal exam: Present: normal bowel sounds, soft. Absent: distended, tenderness - Extremities Exam Extremities exam: Absent: pedal edema, tenderness - Neurological Exam Neurological exam: Present: alert, CN II-XII intact, oriented X3 <Kahlil Melchor - Last Filed: 12/12/16 16:54> - Discharge Diagnosis (1) Hemoptysis Status: Acute (2) Squamous cell carcinoma of lung, stage IV Status: Chronic Qualifiers: Laterality: left Qualified Code(s): C34.92 - Malignant neoplasm of unspecified part of left bronchus or lung (3) Anemia Status: Acute Qualifiers: Anemia type: other cause Other causes of anemia: acute posthemorrhagic Qualified Code(s): D62 - Acute posthemorrhagic anemia (4) COPD (chronic obstructive pulmonary disease) Priority: Secondary Status: Chronic Qualifiers: COPD type: emphysema Emphysema type: unspecified Qualified Code(s): J43.9 - Emphysema, unspecified (5) Malnutrition Status: Chronic (6) Tobacco abuse Status: Acute Procedures/tests Complete & Pending: Procedures Performed prior 72 hours Category Date Time Status CT angio chest [CT] Routine Cat Scan 12/12/16 13:00 Completed ECG 12 lead ECG [ECG] Routine Y 12/10/16 18:12 Completed Date of admission: 12/06/16 15:06 Primary care physician: PCP M[facility] Consults: 12/06/16 15:35 Consult to [facility]ass [CONS] Routine Reason for SW Consult: MARTINA 12/06/16 18:03 Consult to Pulmonology [CONS] Routine Consulting Provider: [facility] Reason for Consult: hemoptysis Time Notified: 17:30 Call Completed: Yes 12/06/16 18:04 Consult to Oncology [CONS] Routine Consulting Provider: [facility] Reason for Consult: Lung CA- hemoptysis Time Notified: 18:00 Call Completed: Yes 12/06/16 18:05 Consult to Palliative Care [CONS] Routine Comment: Consulting Provider: [facility]iative [facility] 12/11/16 11:42 Consult to Interventional Radiology [CONS] Routine Consulting Provider: Radiology Interventional [facility] Reason for Consult: Hemoptysis/possible embolization Call Completed: Yes Hospital course: Mr. Shabazz is a 50 year old male - Time Spent with Patient Total time spent providing and/or coordinating discharge services: 25min - Constitutional Vitals: Temp Pulse Resp BP Pulse Ox 99.2 F 120 16 146/93 98 12/12/16 07:37 12/12/16 07:37 12/12/16 10:47 12/12/16 07:37 12/12/16 10:47 - Attending Attestation I examined this patient and my medical decision-making was reviewed with the Resident Physician on 12/12/16. I agree with the documented findings, disposition and treatment plan as described except to the extent set forth below. Mr Shabazz has had minimal bleeding at this point. Had CTA done - to continue radiation. Exam Alert. Frustrated No wheeze Not tachycardic Plan D/C home Radiation today. Follow up as outpatient.
--- NOTE | 2016-12-12 17:45 | Pulmonology Progress Note ---
Date of Encounter: 12/12/16 Time of Encounter: 13:00 Assessment and Plan (1) Hemoptysis Status: Acute This is expected due to his significant endobronchial lesion. I have talked to primary team and palliative care and I have explained to patient about IR intervention. He agreed to have it done. I reviewed his CT with IR for bronchial artery embolization. Patient has allergy to iodine and plan to do intervention tomorrow. He remain full code and he doesn't want to be transferred to [facility]. I discussed with Dr. Romo and patient to have radiation treatment today. His hemoptysis after bronchoscopic intervention is not massive and mostly mixed with sputum. 12/12 Discussed with IR and since patient is not having massive hemoptysis and he is getting his radiation therapy, I recommended to wait and IR knows the area of target based on his CTA. Discussed with family and also primary team, when patient goes home and if he started to have massive hemoptysis, then need to come to ER and IR can treat him. (2) COPD (chronic obstructive pulmonary disease) Status: Chronic Bronchodilators Qualifiers: COPD type: emphysema Emphysema type: unspecified Qualified Code(s): J43.9 - Emphysema, unspecified (3) Non-small cell lung cancer Status: Chronic Patient to be treated with radiation treatment. Qualifiers: Laterality: unspecified laterality Qualified Code(s): C34.90 - Malignant neoplasm of unspecified part of unspecified bronchus or lung Subjective Principal diagnosis: Hemoptysis Interval history: Patient had CTA Objective PUL Vital signs: Last Vital Signs Temp 99.2 F 12/12/16 07:37 Pulse 120 12/12/16 07:37 Resp 16 12/12/16 10:47 BP 146/93 12/12/16 07:37 Pulse Ox 98 12/12/16 10:47 Came to see patient 2 times, but not available. Family stated no changes. Results - Laboratory Findings CBC and BMP: 12/12/16 05:30 12/12/16 05:30 PT/INR, D-dimer PT 13.6 Seconds (9.4-12.1) H 12/07/16 08:59 Abnormal lab findings: Abnormal lab results RBC 3.30 M/mcL (4.19-5.50) L 12/12/16 05:30 Hgb 10.2 g/dL (12.9-16.9) L D 12/12/16 05:30 Hct 30.9 % (37.5-50.1) L 12/12/16 05:30 RDW 18.0 % (11.5-14.5) H 12/12/16 05:30 Plt Count 437 K/mcL (140-400) H 12/12/16 05:30 MPV 9.2 fL (9.4-12.4) L 12/12/16 05:30 Platelet Estimate Increased (Normal) H 12/07/16 05:27 Anisocytosis 1+ (Not Present) A 12/07/16 05:27 PT 13.6 Seconds (9.4-12.1) H 12/07/16 08:59 Sodium 130 mEq/L (136-145) L 12/12/16 05:30 Potassium 4.8 mEq/L (3.5-4.5) H 12/12/16 05:30 Chloride 93 mEq/L (98-109) L 12/12/16 05:30 Carbon Dioxide 30 mEq/L (19-29) H 12/12/16 05:30 Creatinine 0.54 mg/dL (0.72-1.25) L 12/12/16 05:30 POC Glucose 121 (58-89) H 12/07/16 20:35 Serum Osmolality 268 mOsm/kg (280-300) L 12/07/16 12:52 Calculated Osmolality 269 (280-300) L 12/12/16 05:30 Uric Acid 2.0 mg/dL (3.5-7.2) L 12/07/16 12:52 Albumin 2.2 g/dL (3.5-5.0) L 12/11/16 05:13 Globulin 4.6 g/dL (2.4-3.5) H 12/11/16 05:13 Albumin/Globulin Ratio 0.5 (1.1-2.2) L 12/11/16 05:13 - Clinical Findings Intake & Output: Intake & Output 12/12/16 12/12/16 12/12/16 07:59 15:59 23:59 Intake Total 0 / 0 0 / 0 Output Total 200 / 200 650 / 650 Balance -200 / -200 -650 / -650 Weight 52.2 kg Consult Discharge Plan - Plan Instructions: Megestrol Acetate (By mouth), Acute Hemoptysis (DC), Acute Hemoptysis (GEN), Lung Cancer, Post Adoption Coordinator (GEN) Additional Instructions: [facility] Please restart her home medications as directed. Please start Megace daily. Please return for any new or worsening symptoms, including coughing up blood Referrals: [place],PCP [Primary Care Provider] - 12/20/16 12:30 pm Prescriptions: Megestrol Acetate [Megace] 400 mg PO DAILY #30 [facility] [place]
== END 2016-12-12 14:40 | disposition home or self-care (01) | DRG 163 ==
LOC: SUATTDRO 15:06 → 2NENU 15:06 → ICNU 12-07 10:59 → 2NENU 12-07 12:39
PROVIDERS: ADMIT Family Medicine; ATTEND Internal Medicine
PROC: ENDOBRF (2016-12-07 11:15)